=== PATIENT | female | born 1930 | race African-American/Black ===

== ENCOUNTER 2016-04-17 22:48 | Emergency (ER) | payer MEDICARE ==
[~2016-04-17] VITALS: Ht 160 cm; Wt 55.0 kg
[~2016-04-17 22:48] MED LIST: ALBU6.7H INH; DIGO0.25 PO; FENT50DI T-DERMAL; HYDR-3516 PO; LEVO50TA4 PO; METO50TA11 PO; NEUR600T PO; PRED5TAB PO
[2016-04-17 22:50] VITALS: BP 97/51; PULSE 122; RESP 18; TEMP 98.7; O2SAT 97
[2016-04-18 00:32] VITALS: BP 142/61; PULSE 98; RESP 22; O2SAT 96
[2016-04-18] MEDS ORDERED: SODIUM CHLOR 0.9% 1000 ML INJ 1,000 ML IV SCH (00:37)
[2016-04-18 00:41] VITALS: O2SAT 100
[2016-04-18] MEDS ORDERED: ONDANSETRON HCL 4 MG/2 ML VIAL IVP ONE (00:45)
[2016-04-18] MEDS ORDERED: SODIUM CHLORIDE 0.9% FLUSH 5 ML FLUSH IVF PRN (00:45)
[2016-04-18 01:13] LABS: BASOPHIL % 0.4 % (0.0-2.0); HEMO FLAGS DIFF FINAL; LYMPH % 8.1 % (9.0-44.0); LYMPHOCYTE # 0.8 TH/MM3 (1.0-4.8); MEAN CELL VOLUME 86.4 FL (80.0-100.0); MEAN CORPUSCULAR HEMOGLOBIN 29.9 PG (27.0-34.0); MEAN CORPUSCULAR HGB CONC 34.6 % (32.0-36.0); MONO % 4.4 % (0.0-8.0); NEUT % 87.1 % (16.0-70.0); PLATELET COUNT 206 TH/MM3 (150-450); RED CELL DISTRIBUTION WIDTH 14.6 % (11.6-17.2); WHITE BLOOD COUNT 9.2 TH/MM3 (4.0-11.0)
[2016-04-18 01:19] LABS: BICARBONATE 25.3 MEQ/L (21.0-32.0)
[2016-04-18 03:01] VITALS: BP 112/56; PULSE 99; RESP 16; O2SAT 96
[2016-04-18 03:58] LABS: BACTERIA, URINE RARE /hpf; BLOOD, URINE NEG (NEG); GLUCOSE,URINE NEG (NEG); HYALINE CAST, URINE 9 /lpf (RARE); KETONE, URINE 40 mg/dL (NEG); MUCUS URINE FEW /lpf (OCC); NITRITE,URINE NEG (NEG); SQUAMOUS EPITHELIAL CELL URINE 1 /hpf (0-5); TRANSITIONAL EPI CELLS, URINE <1 /hpf; URINE COLOR YELLOW (YELLW/STRAW)
[2016-04-18 04:00] LABS: COMMENT (UR) CULT NOT INDICATED; CULTURE IF INDICATED CULT NOT INDICATED
--- NOTE | 2016-04-18 04:12 | PD ---
HPI . Weakness Chief Complaint: General Weakness Time Seen by Provider: 00:29 Travel History International Travel<30 days: No Contact w/Intl Traveler<30days: No Traveled to known affect area: No History of Present Illness HPI Patient presents complaining of weakness and nausea. She states that her family checked her blood pressure at home and found her blood pressure to be low and her heart rate to be high. She was subsequently brought to us for evaluation. 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 HERNIA REP., GARCÍA FUNDOPLICATION) Appendectomy: No Body Medical Devices: HERNIA REAIR WITH MESH Cardiac Surgery: No Cholecystectomy: No Coronary Artery Bypass Graft: No Ear Surgery: No Endocrine Surgery: No Eye Surgery: Yes (REGAN EYE CATARACT EXTRACT) Genitourinary Surgery: Yes (BLADDER SUSPENSION) Gynecologic Surgery: Yes ( UNILATERAL OOPHORECTOMY) Hysterectomy: Yes (PARTIAL) Joint Replacement: Yes (TOTAL RT HIP 03/14/2011) Neurologic Surgery: No Oral Surgery: No Pacemaker: No Thoracic Surgery: No Other Surgery: Yes (RIGHT HIP REPLACEMENT) Social History Alcohol Use: No Tobacco Use: No Substance Use: No Allergies-Medications (Allergen,Severity, Reaction): Coded Allergies: Meloxicam (Verified Allergy, Severe, ORAL INFLAMMATION, 04/17/16) Morphine (Verified Allergy, Intermediate, ITCHING, 04/17/16) Percocet (Verified Allergy, Intermediate, ITCHING, 04/17/16) Reported Meds & Prescriptions Reported Meds & Active Scripts Active Reported Metoprolol Succinate ER 24 HR (Metoprolol Succinate) 50 Mg Tab 75 Mg PO BID Levothyroxine (Levothyroxine Sodium) 50 Mcg Tab 50 Mcg PO DAILY Hydrocodone-Acetaminophen 5-325 mg Tab 1 Tab PO Q4H PRN Neurontin (Gabapentin) 600 Mg Tab 600 Mg PO BID Proventil Hfa 6.7 GM Inh (Albuterol Sulfate) 90 Mcg/Act Aer 1 Puff INH Q4H PRN Fentanyl Patch 72 HR (Fentanyl) 50 Mcg/Hr Patch 50 Mcg T-DERMAL Q72H Remove old patch when new one placed. Digoxin 0.25 Mg Tab 2.5 Mg PO DAILY Review of Systems Except as stated in HPI: all other systems reviewed are Neg General / Constitutional: No: Fever, Chills Gastrointestinal: Positive: Nausea Neurologic: Positive: Weakness Physical Exam Narrative GENERAL: This is a spry appearing elderly woman. We had a little bit of difficulty getting her history. She was a little bit of a poor historian. SKIN: Warm and dry. HEAD: Atraumatic. Normocephalic. EYES: Pupils equal and round. Conjunctivae pink. ENT: No nasal bleeding or discharge. Mucous membranes pink and moist. NECK: Trachea midline. Neck supple. CARDIOVASCULAR: Regular rate and rhythm. Heart sounds are normal. RESPIRATORY: No accessory muscle use. Lungs are clear with full air movement throughout. GASTROINTESTINAL: Abdomen soft, non-tender, nondistended. MUSCULOSKELETAL: No obvious deformities. No edema. Patient is able to ambulate without difficulty. NEUROLOGICAL: Awake and alert. No obvious cranial nerve deficits. Motor grossly within normal limits. Normal speech. PSYCHIATRIC: Appropriate mood and affect; insight and judgment normal. Data Data Last Documented VS Vital Signs Date Time Temp Pulse Resp B/P Pulse Ox O2 Delivery O2 Flow Rate FiO2 04/18/16 03:01 99 16 112/56 96 04/18/16 00:41 Room Air 04/17/16 22:50 98.7 Orders Basic Metabolic Panel (Bmp) (04/18/16 00:37) Complete Blood Count With Diff (04/18/16 00:37) Urinalysis - C+S If Indicated (04/18/16 00:37) Iv Access Insert/Monitor (04/18/16 00:37) Ecg Monitoring (04/18/16 00:37) Oximetry (04/18/16 00:37) Ondansetron Inj (Zofran Inj) (04/18/16 00:45) Sodium Chlor 0.9% 1000 Ml Inj (Ns 1000 M (04/18/16 00:37) Sodium Chloride 0.9% Flush (Ns Flush) (04/18/16 00:45) Labs Laboratory Tests Test 04/18/16 04/18/16 00:47 03:25 White Blood Count 9.2 TH/MM3 Red Blood Count 3.70 MIL/MM3 Hemoglobin 11.1 GM/DL Hematocrit 32.0 % Mean Corpuscular Volume 86.4 FL Mean Corpuscular Hemoglobin 29.9 PG Mean Corpuscular Hemoglobin 34.6 % Concent Red Cell Distribution Width 14.6 % Platelet Count 206 TH/MM3 Mean Platelet Volume 10.2 FL Neutrophils (%) (Auto) 87.1 % Lymphocytes (%) (Auto) 8.1 % Monocytes (%) (Auto) 4.4 % Eosinophils (%) (Auto) 0.0 % Basophils (%) (Auto) 0.4 % Neutrophils # (Auto) 8.0 TH/MM3 Lymphocytes # (Auto) 0.8 TH/MM3 Monocytes # (Auto) 0.4 TH/MM3 Eosinophils # (Auto) 0.0 TH/MM3 Basophils # (Auto) 0.0 TH/MM3 CBC Comment DIFF FINAL Differential Comment Sodium Level 135 MEQ/L Potassium Level 4.0 MEQ/L Chloride Level 99 MEQ/L Carbon Dioxide Level 25.3 MEQ/L Anion Gap 11 MEQ/L Blood Urea Nitrogen 27 MG/DL Creatinine 1.28 MG/DL Estimat Glomerular Filtration 48 ML/MIN Rate Random Glucose 117 MG/DL Calcium Level 8.6 MG/DL Urine Color YELLOW Urine Turbidity HAZY Urine pH 5.0 Urine Specific [place] 1.014 Urine Protein TRACE mg/dL Urine Glucose (UA) NEG mg/dL Urine Ketones 40 mg/dL Urine Occult Blood NEG Urine Nitrite NEG Urine Bilirubin NEG Urine Urobilinogen LESS THAN 2.0 MG/DL Urine Leukocyte Esterase NEG Urine RBC 1 /hpf Urine WBC 3 /hpf Urine Squamous Epithelial 1 /hpf Cells Urine Transitional Epithelial <1 /hpf Cells Urine Bacteria RARE /hpf Urine Hyaline Casts 9 /lpf Urine Mucus FEW /lpf Microscopic Urinalysis Comment CULT NOT INDICATED MDM Medical Decision Making Medical Screen Exam Complete: Yes Emergency Medical Condition: Yes Differential Diagnosis Differential diagnosis of weakness includes but is not limited to infection, CVA , electrolyte disturbance, renal failure, hypoglycemia, UTI, ACS Narrative Course Patient presents for evaluation of weakness. She reportedly had tachycardia and hypotension earlier at home. She was also noted to be tachycardic and hypotensive in triage. However, those vital signs had normalized by the time she was placed into a room. CBC & BMP Diagram 04/18/16 00:47 UA is negative for infection. Vital Signs Date Time Temp Pulse Resp B/P Pulse Ox O2 Delivery O2 Flow Rate FiO2 04/18/16 03:01 99 16 112/56 96 04/18/16 00:41 100 Room Air 04/18/16 00:32 98 22 142/61 96 Room Air 04/17/16 22:50 98.7 122 18 97/51 97 Room Air She may have been dehydrated. She has received a liter of fluid. She is able to ambulate without any difficulty at this point. Diagnosis Primary Impression: Weakness Disposition: DISCHARGE HOME Condition: Stable Carey Dacosta MD Apr 18, 2016 04:12
[2016-06-20] MEDS ORDERED: LISI10TA3 PO (08:08)
[2016-06-20] MEDS ORDERED: IBUP-232 PO (12:18)
[2016-07-03] MEDS ORDERED: DOXY100C PO (10:42)
[2016-07-04] MEDS ORDERED: MEDR4PAK PO (10:50)
[2016-07-10] MEDS ORDERED: LEVA500T PO (11:33)
[2016-07-17] MEDS ORDERED: PRED10 PO (11:38)
== END 2016-04-18 05:00 | disposition home or self-care (01) ==
LOC: NEPE 22:48
DX: R53.1 Weakness (principal); I48.91 Unspecified atrial fibrillation; I10 Essential (primary) hypertension; I50.9 Heart failure, unspecified; E03.9 Hypothyroidism, unspecified
CPT/HCPCS: 80048; 81001; 85025; 96361; 96374; 99284; J2405; J7030

== ENCOUNTER → 2016-06-20 | Day surgery (SDC) | payer MEDICARE ==
[~2016-06-20] VITALS: Ht 149.9 cm; Wt 62.0 kg
[~2016-06-20] MED LIST changes: +BUPIVACAINE HCL PF 0.5% 30 ML VIAL ONE; +CEPH-460 PO; +DEXT 5%-NACL 0.45% 1000 ML INJ 1,000 ML IV SCH; +DOXY100C PO; +FAMOTIDINE 20 MG/2 ML VIAL ONE; +IBUP-232 PO; +LACTATED RINGER'S 1000 ML INJ 1,000 ML ONE; +LEVA500T PO; +LISI10TA3 PO; +MEDR4PAK PO; +METOPROLOL TARTRATE 25 MG TAB ONE; +MIDAZOLAM HCL 2 MG/2 ML VIAL ONE; +PRED10 PO; -PRED5TAB PO; +PROPOFOL 200 MG/20 ML AMP IV ONE; +SODIUM CHLORIDE 0.9% FLUSH 5 ML FLUSH IVF PRN; +SODIUM CHLORIDE 0.9% FLUSH 5 ML FLUSH IVF SCH; +SODIUM CHLORIDE 0.9% INJ 50 ML ONE; +ceFAZolin INJ 1,000 MG VIAL ONE
[2016-06-20 07:46] VITALS: BP 171/88; PULSE 95; RESP 16; TEMP 98.5; O2SAT 95
[2016-06-20 08:15] VITALS: PULSE 95
[2016-06-20 09:15] VITALS: PULSE 100
--- NOTE | 2016-06-20 12:17 | HHI.PR ---
Immediate Post Op Note Procedure Date: Jun 20, 2016 Pre Op Diagnosis: (1) Carpal tunnel syndrome (2) Synovitis of forearm Post Op Diagnosis: (1) Carpal tunnel syndrome (2) Synovitis of forearm Surgeon: Cristal Mckenzie Group Director(s): None Procedure: Open release of the right carpal tunnel. Flexor tenosynovectomy of the right carpal tunnel and forearm. Specimen(s) removed: Tenosynovium Anesthesia: Regional Block Drains: None Tourniquet time (min at mmHg) 64 minutes at 250 mm Hg Patient to: PACU Patient Condition: Good Date/Time of Procedure: SEE SURGICAL CARE RECORD Cristal Mckenzie MD Jun 20, 2016 12:16
[2016-06-20 12:45] VITALS: TEMP 97.8
[2016-06-20 13:40] VITALS: BP 142/71; PULSE 78; RESP 16; O2SAT 99
--- NOTE | 2016-06-21 13:43 | EKG ---
Date Performed: 06/20/2016 Time Performed: 08:22:20 PTAGE: 85 years EKG: Sinus rhythm with PAC(s). Short FL interval Possible lateral infarct - age undetermined Inferior and ant/septal S T-T changes suggest myocardial injury/ischemia Exstensive ST-T changes suggest ischemia Compared to p rior tracing no significant change Abnormal ECG PREVIOUS TRACING : 04/30/2015 19.25 DOCTOR: Asael Fischer Interpretating Date/Time 06/21/2016 13:38:01
--- NOTE | 2016-06-23 11:00 | MP ---
cc: MARYBEL LANGE M.D. DATE OF SURGERY: June 20, 2016 PREOPERATIVE DIAGNOSIS 1. Carpal tunnel syndrome. 2. Synovitis of right carpal tunnel. 3. Synovitis of right forearm. POSTOPERATIVE DIAGNOSIS 1. Carpal tunnel syndrome. 2. Synovitis of right carpal tunnel. 3. Synovitis of right forearm. PROCEDURE 1. Open release of the right carpal tunnel. 2. Radical synovectomy of the right carpal tunnel and forearm. ANESTHESIA Regional block. SURGEON Marybel Lange MD INDICATIONS A 85-year-old female with right carpal tunnel syndrome and pressure from the synovium as well as a synovitic mass in the distal forearm. FINDINGS At the completion of the procedure the carpal tunnel was completely released, there was evidence of compression of the tunnel and there was a significant amount of synovitis within the tunnel. There was also a synovitic mass which measured approximately 3-1/2 cm x 3 cm in greatest dimension. It was definitely invading the flexor tendons and it was removed at the completion of the procedure. Tourniquet time was 64 minutes. PROCEDURE The patient was seen preoperatively where the sites and side were identified and marked. The patient was then taken to the operating room, placed in supine position, identity was checked against the arm band and the consent form, site and side confirmed, time-out called prior to beginning the procedure. The right upper extremity was prepped with Hibiclens and draped in usual sterile fashion. The area to be incised was outlined with a marking pen as longitudinal incision in the palm just to the ulnar side of the midline, in addition a transverse incision was designed over the mass. The arm was exsanguinated and the tourniquet inflated to 250 mmHg. A #15 blade was then used to make the incision down through the skin, down to the subcutaneous tissue, down to the palmar fascia. Distally a small hole was poked in the palmar fascia and using the ulnar artery as a guide the Guyon's canal was released. The ulnar artery and nerve were retracted ulnarly. The median nerve retracted medially and using the flexor tendon to the ring finger as a guide the transverse carpal ligament was divided. The nerve was carefully from the roof of the tunnel. It was seen to be compressed but there was no significant scarring around it. After it was mobilized the flexor tendons had synovium removed under loupe magnification. The transverse incision was then made in the forearm over the mass. Decision was made to extend the incision back to the carpal tunnel in order to protect the nerve and facilitate dissection. So the incision was then made in a zigzag fashion between the carpal tunnel incision and the one on the forearm. Flaps were elevated and raised. The palmar fascia was divided along with the palmaris longus. The nerve was identified and retracted and a tenosynovectomy was performed on all of the flexor tendons within the carpal tunnel. Once this was completed the wounds were copiously irrigated with saline and closed with interrupted running 4-0 and 5-0 Nylon. The tourniquet was then released after 64 minutes of tourniquet time, pressure was applied. After several minutes there was no evidence of any oozing and a dressing was applied using povidone-iodine ointment, Adaptic, Telfa, 4x4s, hand wrap and a palmar splint. The patient was then taken from the operating room to the recovery room in satisfactory condition having tolerated the procedure well. Postoperative instructions include keeping the arm elevated, keeping it clean and dry and returning in several days for follow up. MD ONEYDA Walsh/COLE /12:21 PM /10:44 AM
== END | disposition home or self-care (01) ==
LOC: PHSDC 07:03
PROVIDERS: ATTEND Specialist
DX: G56.01 Carpal tunnel syndrome, right upper limb (principal); M65.9 Synovitis and tenosynovitis, unspecified; I10 Essential (primary) hypertension; J44.9 Chronic obstructive pulmonary disease, unspecified
CPT/HCPCS: 01810; 25115; 64415; 64721; 88305; 88312; 93005; J0690; J2250; J7120

== ENCOUNTER 2016-06-30 15:41 | Emergency (ER) | payer MEDICARE ==
[~2016-06-30] VITALS: Ht 149.9 cm; Wt 60.0 kg
[~2016-06-30 15:41] MED LIST changes: -BUPIVACAINE HCL PF 0.5% 30 ML VIAL ONE; -CEPH-460 PO; -DEXT 5%-NACL 0.45% 1000 ML INJ 1,000 ML IV SCH; -DOXY100C PO; -FAMOTIDINE 20 MG/2 ML VIAL ONE; -LACTATED RINGER'S 1000 ML INJ 1,000 ML ONE; -LEVA500T PO; -MEDR4PAK PO; -METOPROLOL TARTRATE 25 MG TAB ONE; -MIDAZOLAM HCL 2 MG/2 ML VIAL ONE; -PRED10 PO; -PROPOFOL 200 MG/20 ML AMP IV ONE; -SODIUM CHLORIDE 0.9% FLUSH 5 ML FLUSH IVF PRN; -SODIUM CHLORIDE 0.9% FLUSH 5 ML FLUSH IVF SCH; -SODIUM CHLORIDE 0.9% INJ 50 ML ONE; -ceFAZolin INJ 1,000 MG VIAL ONE
[2016-06-30 15:46] VITALS: BP 172/80; PULSE 70; RESP 20; TEMP 98.5; O2SAT 98
--- NOTE | 2016-06-30 15:52 | PD ---
Physical Exam Time Seen by Provider: 15:50 Narrative 85 y/o here for postoperative wound check. Underwent R carpal tunnel sx on june [address] Mckenzie, here today because theya re concerned about the possibility of the wound being infected. vss Seen at triage desk. Awaiting bed placement. Data Data Last Documented VS Vital Signs Date Time Temp Pulse Resp B/P Pulse Ox O2 Delivery O2 Flow Rate FiO2 06/30/16 15:46 98.5 70 20 172/80 98 Room Air [facility] Medical Record Reviewed: Yes Supervised Visit with SHAMIKA: Madan Hernandes June 30, 2016 15:52
--- NOTE | 2016-06-30 20:09 | PD ---
HPI Chief Complaint: Skin Problem Time Seen by Provider: 19:54 Travel History International Travel<30 days: No Contact w/Intl Traveler<30days: No Traveled to known affect area: No History of Present Illness HPI Patient is a 85-year-old female presenting to the chart for evaluation of right wrist swelling and pain. Patient had carpal tunnel surgery with Dr. Mckenzie on 06/20/16. This past Thursday she started having increased swelling, increased pain , and bruising per her report. Patient with pain management today and that provider told her to follow up with her hand surgeon, she called Dr. Mckenzie's office and he was unavailable and was told to come to the emergency department for evaluation. Patient denies any fevers but reports chills. She reports her pain is 8 out of 10 and describes it as sore. Patient had taken anything for her pain today. 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 HERNIA REP., GARCÍA FUNDOPLICATION) Appendectomy: No Body Medical Devices: HERNIA REAIR WITH MESH Cardiac Surgery: No Cholecystectomy: No Coronary Artery Bypass Graft: No Ear Surgery: No Endocrine Surgery: No Eye Surgery: Yes (REGAN EYE CATARACT EXTRACT) Genitourinary Surgery: Yes (BLADDER SUSPENSION) Gynecologic Surgery: Yes ( UNILATERAL OOPHORECTOMY) Hysterectomy: Yes (PARTIAL) Joint Replacement: Yes (TOTAL RT HIP 03/14/2011) Neurologic Surgery: No Oral Surgery: No Pacemaker: No Thoracic Surgery: No Other Surgery: Yes (RIGHT HIP REPLACEMENT, right carpal tunnel) Social History Alcohol Use: No Tobacco Use: No Substance Use: No Allergies-Medications (Allergen,Severity, Reaction): Coded Allergies: Meloxicam (Verified Allergy, Severe, ORAL INFLAMMATION, 06/30/16) Morphine (Verified Allergy, Intermediate, ITCHING, 06/30/16) Percocet (Verified Allergy, Intermediate, ITCHING, 06/30/16) Reported Meds & Prescriptions Reported Meds & Active Scripts Active Keflex (Cephalexin) 500 Mg Cap 500 Mg PO Q12H 10 Days Ibuprofen 600 Mg Tab 600 Mg PO Q8HR PRN Reported Lisinopril 10 Mg Tab 10 Mg PO DAILY Metoprolol Succinate ER 24 HR (Metoprolol Succinate) 50 Mg Tab 75 Mg PO BID Levothyroxine (Levothyroxine Sodium) 50 Mcg Tab 50 Mcg PO DAILY Hydrocodone-Acetaminophen 5-325 mg Tab 1 Tab PO Q4H PRN Neurontin (Gabapentin) 600 Mg Tab 600 Mg PO BID Proventil Hfa 6.7 GM Inh (Albuterol Sulfate) 90 Mcg/Act Aer 1 Puff INH Q4H PRN Fentanyl Patch 72 HR (Fentanyl) 50 Mcg/Hr Patch 50 Mcg T-DERMAL Q72H Remove old patch when new one placed. Digoxin 0.25 Mg Tab 2.5 Mg PO DAILY Review of Systems Except as stated in HPI: all other systems reviewed are Neg General / Constitutional: No: Fever, Chills Cardiovascular: No: Chest Pain or Discomfort Respiratory: No: Shortness of Breath Gastrointestinal: No: Nausea, Abdominal Pain Musculoskeletal: Positive: Myalgias, Edema, Pain Skin: Positive Change in Pigmentation Physical Exam Narrative GENERAL: Well-developed, well-nourished, alert elderly female. Resting comfortably in no acute distress. SKIN: Warm and dry. Right wrist is edematous, tender to palpation. Intact sutures noted to the palmar aspect of the right wrist, no drainage noted. HEAD: Normocephalic. EYES: No scleral icterus. No injection or drainage. NECK: Supple, trachea midline. No JVD or lymphadenopathy. CARDIOVASCULAR: Regular rate and rhythm without murmurs, gallops, or rubs. RESPIRATORY: Breath sounds equal bilaterally. No accessory muscle use. GASTROINTESTINAL: Abdomen soft, non-tender, nondistended. MUSCULOSKELETAL: No cyanosis. No pain with passive extension of right fingers. Brisk capillary refill noted. BACK: Nontender without obvious deformity. No CVA tenderness. Data Data Last Documented VS Vital Signs Date Time Temp Pulse Resp B/P Pulse Ox O2 Delivery O2 Flow Rate FiO2 06/30/16 22:34 73 18 154/72 100 Room Air 06/30/16 20:57 98.1 Orders Complete Blood Count With Diff (06/30/16 19:53) Basic Metabolic Panel (Bmp) (06/30/16 19:53) C-Reactive Protein (Crp) (06/30/16 19:53) Westergren Sedimentation Rate (06/30/16 19:53) Wrist, Complete (Ciu0fhy) (06/30/16 ) Iv Access Insert/Monitor (06/30/16 19:53) Cephalexin (Keflex) (06/30/16 20:45) Labs Laboratory Tests Test 06/30/16 19:57 White Blood Count 5.5 TH/MM3 Red Blood Count 3.95 MIL/MM3 Hemoglobin 11.3 GM/DL Hematocrit 33.6 % Mean Corpuscular Volume 85.1 FL Mean Corpuscular Hemoglobin 28.6 PG Mean Corpuscular Hemoglobin 33.6 % Concent Red Cell Distribution Width 15.7 % Platelet Count 303 TH/MM3 Mean Platelet Volume 9.6 FL Neutrophils (%) (Auto) 45.1 % Lymphocytes (%) (Auto) 40.6 % Monocytes (%) (Auto) 8.0 % Eosinophils (%) (Auto) 4.6 % Basophils (%) (Auto) 1.7 % Neutrophils # (Auto) 2.5 TH/MM3 Lymphocytes # (Auto) 2.2 TH/MM3 Monocytes # (Auto) 0.4 TH/MM3 Eosinophils # (Auto) 0.3 TH/MM3 Basophils # (Auto) 0.1 TH/MM3 CBC Comment DIFF FINAL Differential Comment Erythrocyte Sedimentation Rate 41 mm/hr Sodium Level 139 MEQ/L Potassium Level 3.3 MEQ/L Chloride Level 104 MEQ/L Carbon Dioxide Level 28.3 MEQ/L Anion Gap 7 MEQ/L Blood Urea Nitrogen 16 MG/DL Creatinine 0.76 MG/DL Estimat Glomerular Filtration 88 ML/MIN Rate Random Glucose 78 MG/DL Calcium Level 8.9 MG/DL C-Reactive Protein 0.94 MG/DL MDM Medical Decision Making Medical Screen Exam Complete: Yes Emergency Medical Condition: Yes Interpretation(s) Laboratory Tests Test 06/30/16 19:57 White Blood Count 5.5 TH/MM3 Red Blood Count 3.95 MIL/MM3 Hemoglobin 11.3 GM/DL Hematocrit 33.6 % Mean Corpuscular Volume 85.1 FL Mean Corpuscular Hemoglobin 28.6 PG Mean Corpuscular Hemoglobin 33.6 % Concent Red Cell Distribution Width 15.7 % Platelet Count 303 TH/MM3 Mean Platelet Volume 9.6 FL Neutrophils (%) (Auto) 45.1 % Lymphocytes (%) (Auto) 40.6 % Monocytes (%) (Auto) 8.0 % Eosinophils (%) (Auto) 4.6 % Basophils (%) (Auto) 1.7 % Neutrophils # (Auto) 2.5 TH/MM3 Lymphocytes # (Auto) 2.2 TH/MM3 Monocytes # (Auto) 0.4 TH/MM3 Eosinophils # (Auto) 0.3 TH/MM3 Basophils # (Auto) 0.1 TH/MM3 CBC Comment DIFF FINAL Differential Comment Erythrocyte Sedimentation Rate 41 mm/hr Sodium Level 139 MEQ/L Potassium Level 3.3 MEQ/L Chloride Level 104 MEQ/L Carbon Dioxide Level 28.3 MEQ/L Anion Gap 7 MEQ/L Blood Urea Nitrogen 16 MG/DL Creatinine 0.76 MG/DL Estimat Glomerular Filtration 88 ML/MIN Rate Random Glucose 78 MG/DL Calcium Level 8.9 MG/DL C-Reactive Protein 0.94 MG/DL Last Impressions Wrist X-Ray 06/30/16 0000 Signed Impressions: Service Date/Time: Thursday, June 30, 2016 19:55 - CONCLUSION: Volar soft tissue swelling without any acute bony abnormality or perceptible foreign body. Steven Maza MD Vital Signs Date Time Temp Pulse Resp B/P Pulse Ox O2 Delivery O2 Flow Rate FiO2 06/30/16 19:43 18 06/30/16 15:46 98.5 70 20 172/80 98 Room Air Differential Diagnosis Cellulitis versus overuse versus hematoma versus other Narrative Course Patient is a 85-year-old female presenting to emergency from for evaluation of right wrist pain and swelling. She had carpal tunnel repair on June 20. Patient is neurovascularly intact She reports increased pain and swelling since yesterday. Patient did take off the brace after seeing Dr. Mckenzie on Thursday, the swelling started Thursday. The swelling could be secondary to overuse however labs and imaging ordered and pending. Patient's vital signs are stable , she is afebrile, stitches are well approximated with no obvious drainage noted. X-ray of the right wrist show soft tissue swelling, no other abnormality noted. CBC is unremarkable Chemistry, potassium 3.3, CRP 0.94. Sedimentation rate 41 Patient be given Keflex in the emergency department, she will be provided with a prescription for completion of course of antibiotics at home. She is encouraged follow-up with Dr. Mckenzie in 24-48 hours, daughter states she has an appointment on . She is advised to return to emergency department immediately for any new or worsening symptoms. Patient verbalized understanding of instructions. Patient is stable for discharge. Diagnosis Primary Impression: Postoperative edema Referrals: Cristal Mckenzie MD 1 day CALL FOR APPT Patient Instructions: General Instructions Additional Instructions: Follow-up with Dr. Mckenzie Complete full course of antibiotics as prescribed Return to emergency department immediately for any new or worsening symptoms Med/Other Pt SpecificInfo: Prescription(s) given Scripts Cephalexin (Keflex)500 Mg [id number] Mg PO Q12H 10 Days Ref 0 Prov:Isabel Jones 06/30/16 Disposition: 01 DISCHARGE HOME Condition: Stable Isabel Jones June 30, 2016 20:09
[2016-06-30 20:11] LABS: AUTOMATED NEUTROPHIL # 2.5 TH/MM3 (1.8-7.7); BASOPHIL # 0.1 TH/MM3 (0-0.2); BASOPHIL % 1.7 % (0.0-2.0); EOSINOPHIL # 0.3 TH/MM3 (0-0.4); EOSINOPHIL % 4.6 % (0.0-4.0); HEMATOCRIT 33.6 % (35.0-46.0); HEMO FLAGS DIFF FINAL; LYMPH % 40.6 % (9.0-44.0); LYMPHOCYTE # 2.2 TH/MM3 (1.0-4.8); MEAN CELL VOLUME 85.1 FL (80.0-100.0); MEAN CORPUSCULAR HEMOGLOBIN 28.6 PG (27.0-34.0); MEAN CORPUSCULAR HGB CONC 33.6 % (32.0-36.0); NEUT % 45.1 % (16.0-70.0); PLATELET COUNT 303 TH/MM3 (150-450); RED BLOOD COUNT 3.95 MIL/MM3 (4.00-5.30); RED CELL DISTRIBUTION WIDTH 15.7 % (11.6-17.2); WHITE BLOOD COUNT 5.5 TH/MM3 (4.0-11.0)
--- NOTE | 2016-06-30 20:12 | RADRPT ---
EXAM DATE/TIME: 06/30/2016 19:55 [facility] COMPARISON: No previous studies available for comparison. INDICATIONS : Pain, redness and swelling anterior right wrist around sutures, post carpel tunnel surgery 06/20 MEDICAL HISTORY : Carpel tunnel syndrome SURGICAL HISTORY : carpel tunnel surgery ENCOUNTER: Initial ACUITY: 3 days PAIN SCORE: 8/10 LOCATION: Right anterior wrist FINDINGS: Bones of the right wrist are intact and normally aligned. Mild osteoarthritis in a the triscaphe and first carpometacarpal joints. There is prominent volar soft tissue swelling. No radiopaque foreign body demonstrated. CONCLUSION: Volar soft tissue swelling without any acute bony abnormality or perceptible foreign body. Steven Maza MD on June 30, 2016 at 20:09 Board Certified Radiologist. This report was verified electronically.
[2016-06-30 20:37] LABS: BICARBONATE 28.3 MEQ/L (21.0-32.0); POTASSIUM 3.3 MEQ/L (3.5-5.1)
[2016-06-30] MEDS ORDERED: CEPHALEXIN MONOHYDRATE 500 MG CAP PO ONE (20:45)
[2016-06-30] MEDS ORDERED: CEPH-460 PO (20:47)
[2016-06-30 20:57] VITALS: BP 163/72; PULSE 18; PULSE 71; RESP 18; TEMP 98.1; O2SAT 95
[2016-06-30 22:34] VITALS: BP 154/72; PULSE 18; PULSE 73; RESP 18; O2SAT 100
[2016-07-03] MEDS ORDERED: DOXY100C PO (10:42)
[2016-07-04] MEDS ORDERED: MEDR4PAK PO (10:50)
[2016-07-10] MEDS ORDERED: LEVA500T PO (11:33)
[2016-07-17] MEDS ORDERED: PRED10 PO (11:38)
== END 2016-06-30 23:02 | disposition home or self-care (01) ==
LOC: NEPD 15:41
DX: R60.9 Edema, unspecified (principal); I48.91 Unspecified atrial fibrillation; I10 Essential (primary) hypertension; E03.9 Hypothyroidism, unspecified
CPT/HCPCS: 73110; 80048; 85025; 85652; 86140; 99283

== ENCOUNTER 2016-07-30 12:32 | Day surgery (SDC) | payer MEDICARE ==
[~2016-07-30 12:32] MED LIST changes: +CEPH-460 PO; +DOXY100C PO; +LEVA500T PO; +MEDR4PAK PO; +PRED10 PO
[2016-07-30 13:00] VITALS: BP 152/71; PULSE 73; RESP 18; TEMP 97.9; O2SAT 98
[2016-07-30] MEDS ORDERED: cefTRIAXone 1,000 MG/NS 100 ML IV ONE ×2 (14:00)
--- NOTE | 2016-07-30 17:59 | PD.RAD ---
Radiology Post PICC Prog Note Pre Procedure Diagnosis: (1) Infection of right hand Post Procedure Diagnosis: (1) Infection of right hand Procedure: Left PICC line placement Procedure Date: July 30, 2016 Supervising Radiologist Edward Castillo Proceduralist/Assist: Dayan Baker, RT(R)(), Roc Michael, RT(R) Device Side: Left Surinamese: 4 single lumen cm: 45 Catheter: Power PICC Plan of Activity Patient to Unit: ROPU Patient Condition: Good PICC line can be used immediately Edward Castillo MD July 30, 2016 17:59
[2016-07-30] MEDS ORDERED: SODIUM CHLORIDE 0.9% FLUSH 10 ML FLUSH IVF PRN ×2 (18:00)
[2016-07-31] MEDS ORDERED: SODIUM CHLORIDE 0.9% FLUSH 10 ML FLUSH IVF SCH (09:00)
--- NOTE | 2016-07-31 11:09 | RADRPT ---
EXAM DATE/TIME: 07/30/2016 15:05 [place] COMPARISON: No previous studies available for comparison. INDICATIONS : Patient presents with right hand infection in need of intravenous line placement for medication admin istration. MEDICAL HISTORY : CHF HTN PAD COPD Heart failure Zee GERD CHF SURGICAL HISTORY : Bilat cataract surgery Hiatal hernia repair Hysterectomy Bladder sx R rotator cuff repair Right hip replacement Right carpal tunnel sx ENCOUNTER: Initial ACUITY: 1 month PAIN SCORE: 0/10 LOCATION: N/A FLUORO TIME: 0.5 minutes IMAGE SERIES: 0 ACCESS: Left basilic vein DEVICE(S): 1.) 4 [place] single lumen 45 cm Xcela Power PICC PROCEDURE : 1. Ultrasound guidance for venous catheterization. 2. Fluoroscopic guidance. 3. Ultrasound & fluoroscopic guided central venous Power PICC line placement. The risks, benefits and alternatives to the procedure were explained and verbal and written consent w as obtained. The site was prepped in sterile fashion. Full sterile technique was used, including ca p, mask, sterile gloves and gown and a large sterile sheet. Hand hygiene and 2% chlorhexidine prep w as utilized per protocol for cutaneous antisepsis with appropriate dry time for site. The skin and s ubcutaneous tissues were infiltrated with local anesthetic solution. Under direct ultrasound guidance, a suitable vein was accessed and a measuring guidewire was introduc ed and positioned in the central venous system. The ultrasound images depicting access guidance were saved and stored to PACS for permanent record. A Power Injectable PICC line was cut to prescribed length and introduced, positioned with tip at the cavoatrial junction level. The line was flushed and secured per protocol. CONCLUSION: 1. Uncomplicated central venous Power PICC line placement. 2. The PICC line can be used immediately. Edward Castillo MD on July 31, 2016 at 11:07 Board Certified Radiologist. This report was verified electronically.
== END 2016-07-30 15:35 | disposition home or self-care (01) ==
LOC: HROP 12:32 → HRIP 12:37 → HROP 15:35
PROVIDERS: ATTEND Specialist
DX: L08.9 Local infection of the skin and subcutaneous tissue, unspecified (principal); I11.0 Hypertensive heart disease with heart failure; I50.9 Heart failure, unspecified; J44.9 Chronic obstructive pulmonary disease, unspecified; I48.91 Unspecified atrial fibrillation; K21.9 Gastro-esophageal reflux disease without esophagitis; I73.9 Peripheral vascular disease, unspecified; F41.9 Anxiety disorder, unspecified; E03.9 Hypothyroidism, unspecified; Z96.641 Presence of right artificial hip joint; Z88.5 Allergy status to narcotic agent
CPT/HCPCS: 36569; 76937; 77001; 96365; C1751; J0696; J1642

== ENCOUNTER 2018-02-01 02:55 | Inpatient (IN) ==
[2018-02-01 04:08] LABS: Baso % (Auto) 0.5 % (0.0-2.0); Eos # (Auto) 0.3 th/mm3 (0.0-0.4); Eos % (Auto) 5.9 % (0.0-4.0); Hematocrit 31.1 % (35.0-46.0); Hemoglobin 10.7 gm/dL (11.6-15.3); Lymph # (Auto) 1.4 th/mm3 (1.0-4.8); Lymph % (Auto) 26.5 % (9.0-44.0); Mean Corpuscular HGB Conc 34.5 % (32.0-36.0); Mean Corpuscular Hemoglobin 30.8 pg (27.0-34.0); Mean Corpuscular Volume 89.3 fL (80.0-100.0); Mean Platelet Volume 9.1 fL (7.0-11.0); Mono # (Auto) 0.3 th/mm3 (0.0-0.9); Mono % (Auto) 6.3 % (0.0-8.0); Neut # (Auto) 3.2 th/mm3 (1.8-7.7); Neut % (Auto) 60.8 % (16.0-70.0); Platelet Count 181 th/mm3 (150-450); Red Blood Count 3.48 mil/mm3 (4.00-5.30); Red Cell Distribution Width 14.7 % (11.6-17.2); White Blood Count 5.3 th/mm3 (4.0-11.0)
[2018-02-01 04:25] LABS: Activated Partial Thrombo Time 23.9 sec (23.4-31.7); INR 1.1 Ratio; Prothrombin Time 10.8 sec (9.8-11.6)
[2018-02-01 04:26] LABS: Albumin 3.4 g/dL (3.4-5.0); Anion Gap 5 meq/L (5-15); Aspartate Aminotransferase 15 U/L (15-37); Blood Urea Nitrogen 33 mg/dL (7-18); Calcium 8.6 mg/dL (8.5-10.1); Carbon Dioxide 28.7 meq/L (21.0-32.0); Chloride 105 meq/L (98-107); Glomerular Filtration Rate 45 mL/min (>89); Glucose,Random 94 mg/dL (74-106); Lipase 54 U/L (73-393); Magnesium 2.4 mg/dL (1.5-2.5); Potassium 3.9 meq/L (3.5-5.1); Sodium 139 meq/L (136-145)
[2018-02-01 04:27] LABS: Alanine Aminotransferase 15 U/L (10-53); D-Dimer 3.7 mg/L FEU (0.00-0.50)
[2018-02-01 04:28] LABS: Creatine Kinase 109 U/L (26-192)
[2018-02-01 04:31] LABS: Alkaline Phosphatase 71 U/L (45-117); Total Protein 6.7 g/dL (6.4-8.2)
--- NOTE | 2018-02-01 04:37 | XR ---
EXAM DATE: 02/01/2018 4:17 AM EST AGE/SEX: 87 years / Female INDICATIONS: Chest pain today. CLINICAL DATA: This is the patient's initial encounter. Patient reports that signs and symptoms have been present for 1 day and indicates a pain score of 2/10. MEDICAL/SURGICAL HISTORY: Congestive heart failure. Hypertension. PAD COPD Heart failure Afib GERD CHF . Bilat cataract surgery. Hiatal hernia repair. Hysterectomy Bladder sx R rotator cuff repa ir Right hip replacement Right carpal tunnel sx COMPARISON: No prior exams available for comparison. FINDINGS: A single AP view of the chest demonstrates the lungs to be symmetrically aerated without evidence of mass, infiltrate or effusion. There is significant elevation of left hemidiaphragm The cardiomediasti nal contours are unremarkable. Advanced degenerative changes of the shoulders bilaterally as well as the thoracic spine. CONCLUSION: No acute cardiopulmonary disease. Electronically signed by: Murali Oneal MD 02/01/2018 4:36 AM EST
--- NOTE | 2018-02-01 04:47 | CT ---
EXAM DATE: 02/01/2018 4:34 AM EST AGE/SEX: 87 years / Female INDICATIONS: Altered mental status. CLINICAL DATA: This is the patient's initial encounter. Patient reports that signs and symptoms have been present for 1 day and indicates a pain score of 0/10. MEDICAL/SURGICAL HISTORY: Cardiovascular disease. Hypertension. Gastroesophageal reflux disease. Appendectomy. Colon resection. RADIATION DOSE: 33.76 CTDI (mGy) [place] [facility] [place]. . TECHNIQUE: CT of the head without contrast. Using automated exposure control and adjustment of the mA and/or kV according to patient size, radiation dose was kept as low as reasonably achievable to ob tain optimal diagnostic quality images. DICOM format image data is available electronically for revi ew and comparison. FINDINGS: Cerebrum: The ventricles are normal for age. No evidence of midline shift, mass lesion, hemorrhage or acute infarction. No extraaxial fluid collections are seen. Posterior Fossa: The cerebellum and brainstem are intact. The 4th ventricle is midline. The cerebe llopontine angle is unremarkable. Extracranial: The visualized portion of the orbits is intact. Skull: The calvaria is intact. No evidence of skull fracture. CONCLUSION: 1. No acute intracranial abnormality. . Electronically signed by: Muarli Oneal MD 02/01/2018 4:46 AM EST
[2018-02-01 05:01] LABS: Creatine Kinase MB 1.6 ng/mL (0.5-3.6)
--- NOTE | 2018-02-01 05:33 | ED ---
HPI General Chief complaint: Medical Clearance Stated complaint: Medical Time Seen by Provider: 02/01/18 03:37 Source: patient and family Mode of arrival: ambulatory Limitations: no limitations History of Present Illness HPI narrative: The patient is an 87 year old female who presents to the [facility] emergency department with a history of chest pain that occurred prior to arrival. The patient has difficulty describing the character of the pain or how long it lasts, however she reports that the pain is not currently present. She does have a prior history of atrial fibrillation, angina, and congestive heart failure according to her family member. The patient's family member reports that they found her asleep in her recliner. They attempted to awaken her to assist her to bed when she seemed to be confused and was mumbling and complained of chest pain. The patient then became diaphoretic. She denies having any shortness of breath. The patient's family member took her blood pressure and she reports that it was 80/53 at that time. As the patient became more awake and alert her blood pressure improved. The patient does have lower extremity edema currently, however she reports that this is better than usual. She reports that she has been taking her medication as prescribed. She cannot recall when she last had a stress test. 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 On review of systems otherwise, the patient denies having any no recent fevers, cough, congestion, neck pain, abdominal pain, vomiting, diarrhea , urinary symptoms, or other neurologic symptoms. Related Data Home Medications Medication Instructions Recorded Confirmed amlodipine 5 mg PO DAILY 08/31/17 02/01/18 diclofenac sodium 75 mg PO BID 08/31/17 02/01/18 gabapentin 600 mg PO TID 08/31/17 02/01/18 hydrocodone-acetaminophen 1 tab PO TID PRN 08/31/17 02/01/18 lisinopril 10 mg PO DAILY 08/31/17 02/01/18 metoprolol tartrate 75 mg PO BID 08/31/17 02/01/18 zolpidem 1 tab PO HS 08/31/17 02/01/18 digoxin [Lanoxin] 0.125 mg PO DAILY 02/01/18 02/01/18 fentanyl 1 patch TRANSDERMAL Q72H 02/01/18 02/01/18 Allergies Allergy/AdvReac Type Severity Reaction Status Date / Time meloxicam Allergy Severe Anaphylaxis Verified 02/01/18 03:01 morphine Allergy Severe Anaphylaxis Verified 02/01/18 03:01 Review of Systems ROS: all other systems reviewed are negative [facility] Medical History Medical History Cardiac arrest (Acute) History of esophageal stricture (Acute) Back pain (Acute) Arthritis (Acute) GERD (gastroesophageal reflux disease) (Acute) Hyperthyroidism (Acute) Hypertension (Acute) Atrial fibrillation (Acute) Surgical History Surgical History History of repair of left rotator cuff (Acute) History of partial colectomy (Acute) History of appendectomy (Acute) History of total right hip replacement (Acute) History of right knee surgery (Acute) History of phacoemulsification of cataract of both eyes with intraocular lens implantation (Acute) Social History Social History Substance History: No History of Abuse Second Hand Smoke Exposure: Yes Smoking Status: Former smoker Tobacco Type: Cigarettes How Often Do You Have a Drink Containing Alcohol: Never Recent Travel in [facility] within the Last 8 Weeks: No Recent Out of Country Travel within the Last 8 Weeks: No Immunization History Tetanus Immunization: Unsure Exam Const General: cooperative, no acute distress and well developed Nutritional Appearance: well nourished Orientation: alert, awake and oriented x3 HENMT Head: normocephalic and atraumatic Nose: no nasal discharge and no epistaxis Mouth: moist mucous membranes Throat: posterior oropharynx normal and uvula midline Eyes Sclera: normal sclerae Pupils: PERRL Neck Neck: no meningeal signs, trachea midline and no JVD Resp Effort & Inspection: no use of accessory muscles Auscultation: clear to auscultation bilaterally Cardio Rate: regular rate Rhythm: regular rhythm Heart Sounds: no gallops, no murmurs and no rubs GI Inspection: non-distended Palpation: soft, no hepatosplenomegaly, no guarding, not rigid and nontender Auscultation: normal bowel sounds Back/Spine/Pelvis Back: no CVA tenderness Skin General: dry skin (warm) Neuro General: alert, awake and oriented x3 Cranial Nerves: CN's II-XI intact bilaterally Speech: speech normal Motor: strength 5/5 throughout and no movement abnormalities noted Sensory Exam: no sensory deficits noted Extrem General: normal to inspection, no calf tenderness, no clubbing, no cyanosis and edema (Trace pedal edema bilaterally.) Laterality: bilaterally Psych Mood: congruent mood Affect: normal affect Judgment: judgment good Course Initial Documented Vital Signs Temperature 97.4 F L 02/01/18 03:03 Pulse Rate 68 02/01/18 03:03 Respiratory Rate 18 02/01/18 03:03 Blood Pressure 138/64 02/01/18 03:03 Last Documented Vital Signs Temperature 98.9 F 02/01/18 16:00 Pulse Rate 63 02/01/18 16:00 Respiratory Rate 16 02/01/18 16:00 Blood Pressure 126/59 L 02/01/18 16:00 Pulse Oximetry 97 02/01/18 16:00 Medical Decision Making MDM Narrative Medical decision making narrative: During the course of the patient's emergency department visit, the patient's history, examination, and differential diagnosis were reviewed with the patient. The patient was placed on a monitor worker with oximetry and frequent blood pressure monitoring. The patient had IV access obtained and blood work sent for analysis. Diagnostic evaluation was started regarding the patient's chest pain. The patient was initially provided aspirin 324 mg p.o. x1. The patient's diagnostic evaluation is remarkable for a normal white blood cell count 5.3, hemoglobin 10.7, platelets 181 with 5.9 eosinophils, PT PTT within normal limits, d-dimer is elevated at 3.7, CTA to rule out PE was ordered. Chemistry reveals a BUN of 33, creatinine 1.34, cardiac enzymes within normal limits, BNP is 314, lipase within normal limits. CHEST X-RAY: Shows no acute cardiopulmonary disease, CT scan of the brain shows no acute intracranial abnormality. The CTA to rule out PE shows no evidence of pulmonary embolism, cardiomegaly noted, left basilar atelectasis noted. The patient's results were discussed with the patient, including the plan of care. I explained that further testing and/ or monitoring is indicated based on the patient's history, examination, and/ or laboratory findings. Therefore, I recommended admission for additional evaluation. The patient expressed understanding and was agreeable with this plan. The patient was admitted to the hospital in stable condition and sent to a bed under the care of the [facility]. Medical Screen Exam Complete: Yes Emergency Medical Condition: Yes Differential Diagnosis Differential Diagnosis: Acute coronary syndrome, versus pulmonary embolism, versus pneumonia, versus congestive heart failure exacerbation Medical Records Medical records reviewed: Yes I reviewed the patient's medical records. Lab Data Lab results reviewed: Yes I reviewed the patient's lab results. Result diagrams: 02/01/18 12:18 02/01/18 04:00 Lab Results 02/01/18 02/01/18 02/01/18 Range/Units 03:36 04:00 04:00 WBC 5.3 (4.0-11.0) th/mm3 RBC 3.48 L (4.00-5.30) mil/mm3 Hgb 10.7 L (11.6-15.3) gm/dL POC Hgb (Calc) (11.6-15.3) g/dL Hct 31.1 L (35.0-46.0) % POC Hct (35-46.0) % MCV 89.3 (80.0-100.0) fL MCH 30.8 (27.0-34.0) pg MCHC 34.5 (32.0-36.0) % RDW 14.7 (11.6-17.2) % Plt Count 181 (150-450) th/mm3 MPV 9.1 (7.0-11.0) fL Neut % (Auto) 60.8 (16.0-70.0) % Lymph % (Auto) 26.5 (9.0-44.0) % Gates % (Auto) 6.3 (0.0-8.0) % Eos % (Auto) 5.9 H (0.0-4.0) % Baso % (Auto) 0.5 (0.0-2.0) % Neut # (Auto) 3.2 (1.8-7.7) th/mm3 Lymph # (Auto) 1.4 (1.0-4.8) th/mm3 Gates # (Auto) 0.3 (0.0-0.9) th/mm3 Eos # (Auto) 0.3 (0.0-0.4) th/mm3 Baso # (Auto) 0.0 (0.0-0.2) th/mm3 WBC Differential . Differential Comment Auto diff final PT (9.8-11.6) sec INR Ratio APTT (23.4-31.7) sec Fibrinogen (227-377) mg/dL D-Dimer Quant (PE/DVT) (0.00-0.50) mg/L FEU Puncture Site Patient Temperature O2 Saturation (90-100) % ABG pH (7.380-7.420) ABG pCO2 (38-42) mmHg ABG pO2 (61-120) mmHg ABG HCO3 (22-26) mmol/L ABG O2 Content (12.0-20.0) Vol % ABG Base Excess (-2-2) mmol/L ABG Methemoglobin (0-2) % Arnoldo Test Hemoglobin (12.0-16.0) G/DL Carboxyhemoglobin (0-4) % Inspired O2 % Critical Value POC Sodium (137-144) mmol/L Sodium 139 (136-145) meq/L POC Potassium (3.6-5.0) mmol/L Potassium 3.9 (3.5-5.1) meq/L POC Chloride (102-111) mmol/L Chloride 105 (98-107) meq/L Carbon Dioxide 28.7 (21.0-32.0) meq/L Anion Gap 5 (5-15) meq/L POC BUN (5-21) mg/dL BUN 33 H (7-18) mg/dL Creatinine 1.34 H (0.50-1.00) mg/dL POC Creatinine (0.6-1.3) mg/dL Estimated GFR 45 L (>89) mL/min POC Glucose 90 (68-110) mg/dl Random Glucose 94 (74-106) mg/dL Calcium 8.6 (8.5-10.1) mg/dL Magnesium (1.5-2.5) mg/dL Total Bilirubin 1.0 (0.2-1.0) mg/dL AST 15 (15-37) U/L ALT 15 (10-53) U/L Alkaline Phosphatase 71 (45-117) U/L Total Creatine Kinase (26-192) U/L CK-MB (CK-2) (0.5-3.6) ng/mL Troponin I Less than 0.02 L (0.02-0.05) ng/mL B-Natriuretic Peptide (0-100) pg/mL Total Protein 6.7 (6.4-8.2) g/dL Albumin 3.4 (3.4-5.0) g/dL Triglycerides (42-150) mg/dL Cholesterol (120-200) mg/dL LDL Cholesterol, Calc (0-99) mg/dL HDL Cholesterol (40.0-60.0) mg/dL Cholesterol/HDL Ratio Ratio Lipase 54 L (73-393) U/L Beta HCG, Quant (0-5) mIU/mL Urine Color (Yellw/Straw) Urine Clarity (Clear) Urine pH (5.0-8.5) Ur Specific Mammoth (1.002-1.035) Urine Protein (Neg-Trace) mg/dL Urine Glucose (UA) (Negative) mg/dL Urine Ketones (Negative) mg/dL Urine Occult Blood (Negative) Urine Nitrate (Negative) Urine Bilirubin (Negative) Urine Urobilinogen (Less than 2) mg/dL Ur Leukocyte Esterase (Negative) Urine RBC (0-3) /hpf Urine WBC (0-5) /hpf Ur Squamous Epith Cells (0-5) /hpf Urine Mucus (Occasional) /lpf Micro UA Comment Ur Microscopic Review Urine Culture Comments Urine Opiates Screen (Neg) Ur Barbiturates Screen (Neg) Ur Amphetamines Screen (Neg) U Benzodiazepines Scrn (Neg) Urine Cocaine Screen (Neg) U Cannabinoids Screen (Neg) Blood Type Antibody Screen 02/01/18 02/01/18 02/01/18 Range/Units 04:00 04:00 04:00 WBC (4.0-11.0) th/mm3 RBC (4.00-5.30) mil/mm3 Hgb (11.6-15.3) gm/dL POC Hgb (Calc) (11.6-15.3) g/dL Hct (35.0-46.0) % POC Hct (35-46.0) % MCV (80.0-100.0) fL MCH (27.0-34.0) pg MCHC (32.0-36.0) % RDW (11.6-17.2) % Plt Count (150-450) th/mm3 MPV (7.0-11.0) fL Neut % (Auto) (16.0-70.0) % Lymph % (Auto) (9.0-44.0) % Gates % (Auto) (0.0-8.0) % Eos % (Auto) (0.0-4.0) % Baso % (Auto) (0.0-2.0) % Neut # (Auto) (1.8-7.7) th/mm3 Lymph # (Auto) (1.0-4.8) th/mm3 Gates # (Auto) (0.0-0.9) th/mm3 Eos # (Auto) (0.0-0.4) th/mm3 Baso # (Auto) (0.0-0.2) th/mm3 WBC Differential Differential Comment PT 10.8 (9.8-11.6) sec INR 1.1 Ratio APTT 23.9 (23.4-31.7) sec Fibrinogen (227-377) mg/dL D-Dimer Quant (PE/DVT) 3.70 H (0.00-0.50) mg/L FEU Puncture Site Patient Temperature O2 Saturation (90-100) % ABG pH (7.380-7.420) ABG pCO2 (38-42) mmHg ABG pO2 (61-120) mmHg ABG HCO3 (22-26) mmol/L ABG O2 Content (12.0-20.0) Vol % ABG Base Excess (-2-2) mmol/L ABG Methemoglobin (0-2) % Arnoldo Test Hemoglobin (12.0-16.0) G/DL Carboxyhemoglobin (0-4) % Inspired O2 % Critical Value POC Sodium (137-144) mmol/L Sodium (136-145) meq/L POC Potassium (3.6-5.0) mmol/L Potassium (3.5-5.1) meq/L POC Chloride (102-111) mmol/L Chloride (98-107) meq/L Carbon Dioxide (21.0-32.0) meq/L Anion Gap (5-15) meq/L POC BUN (5-21) mg/dL BUN (7-18) mg/dL Creatinine (0.50-1.00) mg/dL POC Creatinine (0.6-1.3) mg/dL Estimated GFR (>89) mL/min POC Glucose (68-110) mg/dl Random Glucose (74-106) mg/dL Calcium (8.5-10.1) mg/dL Magnesium 2.4 (1.5-2.5) mg/dL Total Bilirubin (0.2-1.0) mg/dL AST (15-37) U/L ALT (10-53) U/L Alkaline Phosphatase (45-117) U/L Total Creatine Kinase 109 (26-192) U/L CK-MB (CK-2) 1.6 (0.5-3.6) ng/mL Troponin I (0.02-0.05) ng/mL B-Natriuretic Peptide 314 H (0-100) pg/mL Total Protein (6.4-8.2) g/dL Albumin (3.4-5.0) g/dL Triglycerides (42-150) mg/dL Cholesterol (120-200) mg/dL LDL Cholesterol, Calc (0-99) mg/dL HDL Cholesterol (40.0-60.0) mg/dL Cholesterol/HDL Ratio Ratio Lipase (73-393) U/L Beta HCG, Quant (0-5) mIU/mL Urine Color (Yellw/Straw) Urine Clarity (Clear) Urine pH (5.0-8.5) Ur Specific Mammoth (1.002-1.035) Urine Protein (Neg-Trace) mg/dL Urine Glucose (UA) (Negative) mg/dL Urine Ketones (Negative) mg/dL Urine Occult Blood (Negative) Urine Nitrate (Negative) Urine Bilirubin (Negative) Urine Urobilinogen (Less than 2) mg/dL Ur Leukocyte Esterase (Negative) Urine RBC (0-3) /hpf Urine WBC (0-5) /hpf Ur Squamous Epith Cells (0-5) /hpf Urine Mucus (Occasional) /lpf Micro UA Comment Ur Microscopic Review Urine Culture Comments Urine Opiates Screen (Neg) Ur Barbiturates Screen (Neg) Ur Amphetamines Screen (Neg) U Benzodiazepines Scrn (Neg) Urine Cocaine Screen (Neg) U Cannabinoids Screen (Neg) Blood Type Antibody Screen 02/01/18 02/01/18 02/01/18 Range/Units 07:38 09:50 12:00 WBC (4.0-11.0) th/mm3 RBC (4.00-5.30) mil/mm3 Hgb (11.6-15.3) gm/dL POC Hgb (Calc) (11.6-15.3) g/dL Hct (35.0-46.0) % POC Hct (35-46.0) % MCV (80.0-100.0) fL MCH (27.0-34.0) pg MCHC (32.0-36.0) % RDW (11.6-17.2) % Plt Count (150-450) th/mm3 MPV (7.0-11.0) fL Neut % (Auto) (16.0-70.0) % Lymph % (Auto) (9.0-44.0) % Gates % (Auto) (0.0-8.0) % Eos % (Auto) (0.0-4.0) % Baso % (Auto) (0.0-2.0) % Neut # (Auto) (1.8-7.7) th/mm3 Lymph # (Auto) (1.0-4.8) th/mm3 Gates # (Auto) (0.0-0.9) th/mm3 Eos # (Auto) (0.0-0.4) th/mm3 Baso # (Auto) (0.0-0.2) th/mm3 WBC Differential Differential Comment PT (9.8-11.6) sec INR Ratio APTT (23.4-31.7) sec Fibrinogen (227-377) mg/dL D-Dimer Quant (PE/DVT) (0.00-0.50) mg/L FEU Puncture Site Patient Temperature O2 Saturation (90-100) % ABG pH (7.380-7.420) ABG pCO2 (38-42) mmHg ABG pO2 (61-120) mmHg ABG HCO3 (22-26) mmol/L ABG O2 Content (12.0-20.0) Vol % ABG Base Excess (-2-2) mmol/L ABG Methemoglobin (0-2) % Arnoldo Test Hemoglobin (12.0-16.0) G/DL Carboxyhemoglobin (0-4) % Inspired O2 % Critical Value POC Sodium (137-144) mmol/L Sodium (136-145) meq/L POC Potassium (3.6-5.0) mmol/L Potassium (3.5-5.1) meq/L POC Chloride (102-111) mmol/L Chloride (98-107) meq/L Carbon Dioxide (21.0-32.0) meq/L Anion Gap (5-15) meq/L POC BUN (5-21) mg/dL BUN (7-18) mg/dL Creatinine (0.50-1.00) mg/dL POC Creatinine (0.6-1.3) mg/dL Estimated GFR (>89) mL/min POC Glucose 82 (68-110) mg/dl Random Glucose (74-106) mg/dL Calcium (8.5-10.1) mg/dL Magnesium (1.5-2.5) mg/dL Total Bilirubin (0.2-1.0) mg/dL AST (15-37) U/L ALT (10-53) U/L Alkaline Phosphatase (45-117) U/L Total Creatine Kinase 92 88 (26-192) U/L CK-MB (CK-2) (0.5-3.6) ng/mL Troponin I Less than 0.02 L Less than 0.02 L (0.02-0.05) ng/mL B-Natriuretic Peptide (0-100) pg/mL Total Protein (6.4-8.2) g/dL Albumin (3.4-5.0) g/dL Triglycerides (42-150) mg/dL Cholesterol (120-200) mg/dL LDL Cholesterol, Calc (0-99) mg/dL HDL Cholesterol (40.0-60.0) mg/dL Cholesterol/HDL Ratio Ratio Lipase (73-393) U/L Beta HCG, Quant (0-5) mIU/mL Urine Color (Yellw/Straw) Urine Clarity (Clear) Urine pH (5.0-8.5) Ur Specific Mammoth (1.002-1.035) Urine Protein (Neg-Trace) mg/dL Urine Glucose (UA) (Negative) mg/dL Urine Ketones (Negative) mg/dL Urine Occult Blood (Negative) Urine Nitrate (Negative) Urine Bilirubin (Negative) Urine Urobilinogen (Less than 2) mg/dL Ur Leukocyte Esterase (Negative) Urine RBC (0-3) /hpf Urine WBC (0-5) /hpf Ur Squamous Epith Cells (0-5) /hpf Urine Mucus (Occasional) /lpf Micro UA Comment Ur Microscopic Review Urine Culture Comments Urine Opiates Screen (Neg) Ur Barbiturates Screen (Neg) Ur Amphetamines Screen (Neg) U Benzodiazepines Scrn (Neg) Urine Cocaine Screen (Neg) U Cannabinoids Screen (Neg) Blood Type Antibody Screen 02/01/18 02/01/18 02/01/18 Range/Units 12:00 12:18 12:18 WBC 5.7 (4.0-11.0) th/mm3 RBC 3.49 L (4.00-5.30) mil/mm3 Hgb 10.8 L (11.6-15.3) gm/dL POC Hgb (Calc) (11.6-15.3) g/dL Hct 31.5 L (35.0-46.0) % POC Hct (35-46.0) % MCV 90.2 (80.0-100.0) fL MCH 31.0 (27.0-34.0) pg MCHC 34.4 (32.0-36.0) % RDW 14.5 (11.6-17.2) % Plt Count 187 (150-450) th/mm3 MPV 9.6 (7.0-11.0) fL Neut % (Auto) 51.2 (16.0-70.0) % Lymph % (Auto) 35.7 (9.0-44.0) % Gates % (Auto) 6.3 (0.0-8.0) % Eos % (Auto) 6.1 H (0.0-4.0) % Baso % (Auto) 0.7 (0.0-2.0) % Neut # (Auto) 2.9 (1.8-7.7) th/mm3 Lymph # (Auto) 2.0 (1.0-4.8) th/mm3 Gates # (Auto) 0.4 (0.0-0.9) th/mm3 Eos # (Auto) 0.3 (0.0-0.4) th/mm3 Baso # (Auto) 0.0 (0.0-0.2) th/mm3 WBC Differential . Differential Comment Auto diff final PT 10.7 (9.8-11.6) sec INR 1.1 Ratio APTT 24.1 (23.4-31.7) sec Fibrinogen 287 (227-377) mg/dL D-Dimer Quant (PE/DVT) (0.00-0.50) mg/L FEU Puncture Site Left radial Patient Temperature 98.6 O2 Saturation 93 (90-100) % ABG pH 7.42 (7.380-7.420) ABG pCO2 43 H (38-42) mmHg ABG pO2 73 (61-120) mmHg ABG HCO3 27 H (22-26) mmol/L ABG O2 Content 13.1 (12.0-20.0) Vol % ABG Base Excess 2.9 H (-2-2) mmol/L ABG Methemoglobin 0.3 (0-2) % Arnoldo Test Present Hemoglobin 10.0 L (12.0-16.0) G/DL Carboxyhemoglobin 1.4 (0-4) % Inspired O2 21 % Critical Value No POC Sodium (137-144) mmol/L Sodium (136-145) meq/L POC Potassium (3.6-5.0) mmol/L Potassium (3.5-5.1) meq/L POC Chloride (102-111) mmol/L Chloride (98-107) meq/L Carbon Dioxide (21.0-32.0) meq/L Anion Gap (5-15) meq/L POC BUN (5-21) mg/dL BUN (7-18) mg/dL Creatinine (0.50-1.00) mg/dL POC Creatinine (0.6-1.3) mg/dL Estimated GFR (>89) mL/min POC Glucose (68-110) mg/dl Random Glucose (74-106) mg/dL Calcium (8.5-10.1) mg/dL Magnesium (1.5-2.5) mg/dL Total Bilirubin (0.2-1.0) mg/dL AST (15-37) U/L ALT (10-53) U/L Alkaline Phosphatase (45-117) U/L Total Creatine Kinase (26-192) U/L CK-MB (CK-2) (0.5-3.6) ng/mL Troponin I (0.02-0.05) ng/mL B-Natriuretic Peptide (0-100) pg/mL Total Protein (6.4-8.2) g/dL Albumin (3.4-5.0) g/dL Triglycerides (42-150) mg/dL Cholesterol (120-200) mg/dL LDL Cholesterol, Calc (0-99) mg/dL HDL Cholesterol (40.0-60.0) mg/dL Cholesterol/HDL Ratio Ratio Lipase (73-393) U/L Beta HCG, Quant (0-5) mIU/mL Urine Color (Yellw/Straw) Urine Clarity (Clear) Urine pH (5.0-8.5) Ur Specific Mammoth (1.002-1.035) Urine Protein (Neg-Trace) mg/dL Urine Glucose (UA) (Negative) mg/dL Urine Ketones (Negative) mg/dL Urine Occult Blood (Negative) Urine Nitrate (Negative) Urine Bilirubin (Negative) Urine Urobilinogen (Less than 2) mg/dL Ur Leukocyte Esterase (Negative) Urine RBC (0-3) /hpf Urine WBC (0-5) /hpf Ur Squamous Epith Cells (0-5) /hpf Urine Mucus (Occasional) /lpf Micro UA Comment Ur Microscopic Review Urine Culture Comments Urine Opiates Screen (Neg) Ur Barbiturates Screen (Neg) Ur Amphetamines Screen (Neg) U Benzodiazepines Scrn (Neg) Urine Cocaine Screen (Neg) U Cannabinoids Screen (Neg) Blood Type Antibody Screen 02/01/18 02/01/18 02/01/18 Range/Units 12:18 12:18 12:18 WBC (4.0-11.0) th/mm3 RBC (4.00-5.30) mil/mm3 Hgb (11.6-15.3) gm/dL POC Hgb (Calc) 10.9 L (11.6-15.3) g/dL Hct (35.0-46.0) % POC Hct 32.0 L (35-46.0) % MCV (80.0-100.0) fL MCH (27.0-34.0) pg MCHC (32.0-36.0) % RDW (11.6-17.2) % Plt Count (150-450) th/mm3 MPV (7.0-11.0) fL Neut % (Auto) (16.0-70.0) % Lymph % (Auto) (9.0-44.0) % Gates % (Auto) (0.0-8.0) % Eos % (Auto) (0.0-4.0) % Baso % (Auto) (0.0-2.0) % Neut # (Auto) (1.8-7.7) th/mm3 Lymph # (Auto) (1.0-4.8) th/mm3 Gates # (Auto) (0.0-0.9) th/mm3 Eos # (Auto) (0.0-0.4) th/mm3 Baso # (Auto) (0.0-0.2) th/mm3 WBC Differential Differential Comment PT (9.8-11.6) sec INR Ratio APTT (23.4-31.7) sec Fibrinogen (227-377) mg/dL D-Dimer Quant (PE/DVT) (0.00-0.50) mg/L FEU Puncture Site Patient Temperature O2 Saturation (90-100) % ABG pH (7.380-7.420) ABG pCO2 (38-42) mmHg ABG pO2 (61-120) mmHg ABG HCO3 (22-26) mmol/L ABG O2 Content (12.0-20.0) Vol % ABG Base Excess (-2-2) mmol/L ABG Methemoglobin (0-2) % Arnoldo Test Hemoglobin (12.0-16.0) G/DL Carboxyhemoglobin (0-4) % Inspired O2 % Critical Value POC Sodium 140 (137-144) mmol/L Sodium (136-145) meq/L POC Potassium 4.3 (3.6-5.0) mmol/L Potassium (3.5-5.1) meq/L POC Chloride 101 L (102-111) mmol/L Chloride (98-107) meq/L Carbon Dioxide (21.0-32.0) meq/L Anion Gap (5-15) meq/L POC BUN 30 H (5-21) mg/dL BUN (7-18) mg/dL Creatinine (0.50-1.00) mg/dL POC Creatinine 1.0 (0.6-1.3) mg/dL Estimated GFR (>89) mL/min POC Glucose 80 (68-110) mg/dl Random Glucose (74-106) mg/dL Calcium (8.5-10.1) mg/dL Magnesium (1.5-2.5) mg/dL Total Bilirubin (0.2-1.0) mg/dL AST (15-37) U/L ALT (10-53) U/L Alkaline Phosphatase (45-117) U/L Total Creatine Kinase 93 (26-192) U/L CK-MB (CK-2) (0.5-3.6) ng/mL Troponin I Less than 0.02 L (0.02-0.05) ng/mL B-Natriuretic Peptide (0-100) pg/mL Total Protein (6.4-8.2) g/dL Albumin (3.4-5.0) g/dL Triglycerides 54 (42-150) mg/dL Cholesterol 107 L (120-200) mg/dL LDL Cholesterol, Calc 43 (0-99) mg/dL HDL Cholesterol 52.9 (40.0-60.0) mg/dL Cholesterol/HDL Ratio 2.02 Ratio Lipase (73-393) U/L Beta HCG, Quant 2 (0-5) mIU/mL Urine Color (Yellw/Straw) Urine Clarity (Clear) Urine pH (5.0-8.5) Ur Specific Mammoth (1.002-1.035) Urine Protein (Neg-Trace) mg/dL Urine Glucose (UA) (Negative) mg/dL Urine Ketones (Negative) mg/dL Urine Occult Blood (Negative) Urine Nitrate (Negative) Urine Bilirubin (Negative) Urine Urobilinogen (Less than 2) mg/dL Ur Leukocyte Esterase (Negative) Urine RBC (0-3) /hpf Urine WBC (0-5) /hpf Ur Squamous Epith Cells (0-5) /hpf Urine Mucus (Occasional) /lpf Micro UA Comment Ur Microscopic Review Urine Culture Comments Urine Opiates Screen (Neg) Ur Barbiturates Screen (Neg) Ur Amphetamines Screen (Neg) U Benzodiazepines Scrn (Neg) Urine Cocaine Screen (Neg) U Cannabinoids Screen (Neg) Blood Type O Positive Antibody Screen Negative 02/01/18 02/01/18 Range/Units 16:46 16:46 WBC (4.0-11.0) th/mm3 RBC (4.00-5.30) mil/mm3 Hgb (11.6-15.3) gm/dL POC Hgb (Calc) (11.6-15.3) g/dL Hct (35.0-46.0) % POC Hct (35-46.0) % MCV (80.0-100.0) fL MCH (27.0-34.0) pg MCHC (32.0-36.0) % RDW (11.6-17.2) % Plt Count (150-450) th/mm3 MPV (7.0-11.0) fL Neut % (Auto) (16.0-70.0) % Lymph % (Auto) (9.0-44.0) % Gates % (Auto) (0.0-8.0) % Eos % (Auto) (0.0-4.0) % Baso % (Auto) (0.0-2.0) % Neut # (Auto) (1.8-7.7) th/mm3 Lymph # (Auto) (1.0-4.8) th/mm3 Gates # (Auto) (0.0-0.9) th/mm3 Eos # (Auto) (0.0-0.4) th/mm3 Baso # (Auto) (0.0-0.2) th/mm3 WBC Differential Differential Comment PT (9.8-11.6) sec INR Ratio APTT (23.4-31.7) sec Fibrinogen (227-377) mg/dL D-Dimer Quant (PE/DVT) (0.00-0.50) mg/L FEU Puncture Site Patient Temperature O2 Saturation (90-100) % ABG pH (7.380-7.420) ABG pCO2 (38-42) mmHg ABG pO2 (61-120) mmHg ABG HCO3 (22-26) mmol/L ABG O2 Content (12.0-20.0) Vol % ABG Base Excess (-2-2) mmol/L ABG Methemoglobin (0-2) % Arnoldo Test Hemoglobin (12.0-16.0) G/DL Carboxyhemoglobin (0-4) % Inspired O2 % Critical Value POC Sodium (137-144) mmol/L Sodium (136-145) meq/L POC Potassium (3.6-5.0) mmol/L Potassium (3.5-5.1) meq/L POC Chloride (102-111) mmol/L Chloride (98-107) meq/L Carbon Dioxide (21.0-32.0) meq/L Anion Gap (5-15) meq/L POC BUN (5-21) mg/dL BUN (7-18) mg/dL Creatinine (0.50-1.00) mg/dL POC Creatinine (0.6-1.3) mg/dL Estimated GFR (>89) mL/min POC Glucose (68-110) mg/dl Random Glucose (74-106) mg/dL Calcium (8.5-10.1) mg/dL Magnesium (1.5-2.5) mg/dL Total Bilirubin (0.2-1.0) mg/dL AST (15-37) U/L ALT (10-53) U/L Alkaline Phosphatase (45-117) U/L Total Creatine Kinase (26-192) U/L CK-MB (CK-2) (0.5-3.6) ng/mL Troponin I (0.02-0.05) ng/mL B-Natriuretic Peptide (0-100) pg/mL Total Protein (6.4-8.2) g/dL Albumin (3.4-5.0) g/dL Triglycerides (42-150) mg/dL Cholesterol (120-200) mg/dL LDL Cholesterol, Calc (0-99) mg/dL HDL Cholesterol (40.0-60.0) mg/dL Cholesterol/HDL Ratio Ratio Lipase (73-393) U/L Beta HCG, Quant (0-5) mIU/mL Urine Color Yellow (Yellw/Straw) Urine Clarity Clear (Clear) Urine pH 6.0 (5.0-8.5) Ur Specific Mammoth 1.032 (1.002-1.035) Urine Protein Negative (Neg-Trace) mg/dL Urine Glucose (UA) Negative (Negative) mg/dL Urine Ketones Negative (Negative) mg/dL Urine Occult Blood Negative (Negative) Urine Nitrate Negative (Negative) Urine Bilirubin Negative (Negative) Urine Urobilinogen Less than 2 (Less than 2) mg/dL Ur Leukocyte Esterase Trace H (Negative) Urine RBC 1 (0-3) /hpf Urine WBC 1 (0-5) /hpf Ur Squamous Epith Cells 2 (0-5) /hpf Urine Mucus Few H (Occasional) /lpf Micro UA Comment Culture not ind Ur Microscopic Review Not Reportable Urine Culture Comments Culture not ind Urine Opiates Screen Neg (Neg) Ur Barbiturates Screen Neg (Neg) Ur Amphetamines Screen Neg (Neg) U Benzodiazepines Scrn Neg (Neg) Urine Cocaine Screen Neg (Neg) U Cannabinoids Screen Neg (Neg) Blood Type Antibody Screen Imaging Data Radiologist's impression: Chest X-Ray 02/01/18 03:41 CONCLUSION: No acute cardiopulmonary disease. Head CT 02/01/18 03:42 CONCLUSION: 1. No acute intracranial abnormality. . Chest CTA 02/01/18 05:14 CONCLUSION: 1. No pulmonary emboli. 2. Cardiomegaly. 3. Left basilar atelectasis. Chest X-Ray 02/01/18 12:16 CONCLUSION: There is a parenchymal infiltrate in the left lower lung. Head CT 02/01/18 12:16 CONCLUSION: 1. No focal or acute intracranial hemorrhage. Report was called by [Dr. Javed to Dr. Leon at 12:30 PM ] Head CTA 02/01/18 12:16 CONCLUSION: 1. No evidence of acute occlusion. Report was called by [ Dr. Javed to Dr. Leon at 12:30 PM] Neck CTA 02/01/18 12:16 CONCLUSION: 1. There are some calcified plaquing at both carotid bifurcations. 2. No evidence of any focal or high-grade stenosis. 3. Both internal carotid arteries are patent throughout their extent. There is tortuosity of both internal carotid arteries. ECG Data Attestation: I personally reviewed and interpreted this ECG as follows: Interpretation: The patient had an EKG done on arrival. The patient's EKG reveals a sinus rhythm with a sinus arrhythmia, heart rate of 74, QRS duration is 88 ms, QTC 400 ms. T waves are inverted in lead II, 3, aVF, V3, V4, V5. Discharge Plan Discharge Disposition Patient Disposition: 30 Still Patient Discharge Order Discharge Orders: ED Use Only Admit Order (Routine); Ordered 02/01/18 Ordered By: Michaela Rodriguez Discharge Details Diagnosis: Chest pain, rule out acute myocardial infarction Physicians Team ED Provider: Michaela Rodriguez Primary Care Provider: UNKNOWN, Attending Provider: Abelino Muse Other Providers: Roldan Leon Status ED Status: Left Department Discharge Information Discharge Date/Time: 02/01/18 09:27
--- NOTE | 2018-02-01 06:18 | CT ---
EXAM DATE: 02/01/2018 5:53 AM EST AGE/SEX: 87 years / Female INDICATIONS: Elevated D-Dimer. CLINICAL DATA: This is the patient's initial encounter. Patient reports that signs and symptoms have been present for 1 day and indicates a pain score of 0/10. MEDICAL/SURGICAL HISTORY: Cardiovascular disease. Hypertension. Gastroesophageal reflux disease. Appendectomy. Colon resection. RADIATION DOSE: 8.93 CTDI (mGy) [place] [facility] [place] 3[place]. . TECHNIQUE: Volumetric scanning was performed using a multi-row detector CT scanner during bolus infu jing of 60 ml Omnipaque 350 (iohexol) nonionic water-soluble contrast as a single exam dose. The perla a was post processed with a variety of visualization algorithms including full volume maximum intensi ty projection and sliding thin slab reformation. Using automated exposure control and adjustment of t he mA and/or kV according to patient size, radiation dose was kept as low as reasonably achievable to obtain optimal diagnostic quality images. DICOM format image data is available electronically for r eview and comparison. FINDINGS: Pulmonary Arteries: No filling defects are seen in the pulmonary arteries out to the subsegmental ve ssels. The left and right pulmonary arteries are normal in diameter. Lung: Chronic elevation of the left hemidiaphragm. Mild left basilar atelectasis. No infiltrates.. Effusion: None. Mediastinum: Mild cardiomegaly. No pericardial effusion. No evidence of mediastinal or hilar adenopa thy. Other: The axilla is unremarkable. Advanced osteoarthritis involving the right shoulder including er osive changes of the glenoid. Stable 1.5 cm hepatic cyst within the left lobe. CONCLUSION: 1. No pulmonary emboli. 2. Cardiomegaly. 3. Left basilar atelectasis. Electronically signed by: Murali Oneal MD 02/01/2018 6:16 AM EST
--- NOTE | 2018-02-01 08:40 | P.HPCA ---
History of Present Illness Primary Care Physician: UNKNOWN Chief Complaint: Chest pain History of Present Illness: This is an 87-year-old this [id number] female patient in the presents to ED with past history of paroxysmal atrial fibrillation, atrial tachycardia, congestive heart failure with left ventricular hypertrophy, COPD, hypertension, hypothyroidism, chronic back pain that presents to ED to be evaluated for chest discomfort patient states that family woke her up to move her from a chair to her bedroom and when doing so she developed a chest pain with discomfort in her left arm as well. She really cannot recall how long it lasted. Cannot recall she is short of breath, nauseous, diaphoretic. For now she does not have any 3 of CAD, cannot recall last stress testing. Upon review of records she had a nonischemic Lexiscan here in 2011. [address] Ck Morales of cardiology however she does not recall seeing him recently. Feeling okay at this time. History of paroxysmal atrial fibrillation, atrial tachycardia, CHF, LVH, COPD, hypertension, hypothyroidism, and chronic back pain. Denies diabetes, CAD, and hyperlipidemia. She smoked about 1/2 pack of cigarettes a day for 10 years but has not smoked since the 1960s. - Diagnosis (1) Chest pain (2) Paroxysmal atrial fibrillation (3) Hypertension Review of Systems General: Patient denies fevers, chills, and recent travel. HEENT: Patient denies headache, sore throat, difficulty swallowing. Cardiovascular: Has the chest discomfort as mentioned above. Denies sensation of heart beating rapidly or irregularly. No syncope. Does not recall being diaphoretic. Respiratory: Cannot recall being short of breath. Denies inspirational chest discomfort. Denies coughing wheezing or hemoptysis. GI: Patient denies nausea, vomiting, diarrhea, abdominal pain, bloody stools. Musculoskeletal: Patient denies joint pain or edema. Denies calf pain or edema. Neurovascular: Patient denies numbness, tingling, weakness in extremities. Denies headache. Endocrine: Denies polyuria and polydipsia. Hematologic: Denies easy bruising. Skin: Denies rash or itching. PMF - History History Provided By: Patient, Family Member - Medical History Medical History: Medical History (Last Reviewed 02/01/18 @ 05:30 by Michaela Rodriguez MD) Cardiac arrest (Acute) History of esophageal stricture (Acute) Back pain (Acute) Arthritis (Acute) GERD (gastroesophageal reflux disease) (Acute) Hyperthyroidism (Acute) Hypertension (Acute) Atrial fibrillation (Acute) - Surgical History Surgical History: Surgical History (Last Reviewed 02/01/18 @ 05:30 by Michaela Rodriguez MD) History of repair of left rotator cuff (Acute) History of partial colectomy (Acute) History of appendectomy (Acute) History of total right hip replacement (Acute) History of right knee surgery (Acute) History of phacoemulsification of cataract of both eyes with intraocular lens implantation (Acute) - Tobacco History Second Hand Smoke Exposure: No Tobacco Use In Past 30 Days: No Smoking Status: Former smoker Tobacco Type: Cigarettes - Alcohol History How Often Do You Have a Drink Containing Alcohol: Never - Substance Use History Substance History: No History of Abuse - Immunization History Tetanus Immunization: Unsure Medications and Allergies Active Medications: Active Medications Sodium Chloride (Ns Flush) 2 ml IV.FLUSH UNSCH PRN PRN Reason: FLUSH AFTER USING IV ACCESS Sodium Chloride (Ns Flush) 2 ml IV.FLUSH BID DIETER Sodium Chloride (Ns Flush) 2 ml IV.FLUSH PRN PRN PRN Reason: FLUSH AFTER USING IV ACCESS Allergies Allergy/AdvReac Type Severity Reaction Status Date / Time meloxicam Allergy Severe Anaphylaxis Verified 02/01/18 03:01 morphine Allergy Severe Anaphylaxis Verified 02/01/18 03:01 Home Medications Medication Instructions Recorded Confirmed Type amitriptyline 25 mg PO DAILY 08/31/17 09/03/17 History amlodipine 5 mg PO DAILY 08/31/17 09/03/17 History diclofenac sodium 75 mg PO BID 08/31/17 09/03/17 History digoxin 0.125 mg PO DAILY 08/31/17 09/03/17 History gabapentin 600 mg PO TID 08/31/17 09/03/17 History hydrocodone-acetaminophen 1 tab PO TID PRN 08/31/17 09/03/17 History levothyroxine 50 mcg PO DAILY 08/31/17 09/03/17 History lisinopril 10 mg PO DAILY 08/31/17 09/03/17 History metoprolol tartrate 75 mg PO BID 08/31/17 09/03/17 History omeprazole 20 mg PO BID 08/31/17 09/03/17 History sucralfate [Carafate] 1 g PO TID 08/31/17 09/03/17 History zolpidem 1 tab PO HS 08/31/17 09/03/17 History Exam Vital signs: Vital Signs 02/01/18 03:03 02/01/18 03:11 02/01/18 06:43 Temperature 97.4 F L 97.4 F L Pulse Rate 68 76 75 Respiratory Rate 18 15 16 Blood Pressure 138/64 123/58 L 99/50 L Pulse Oximetry 99 97 02/01/18 07:37 Temperature 98.7 F Pulse Rate 75 Respiratory Rate 18 Blood Pressure 126/60 Pulse Oximetry 100 Narrative: GENERAL: This is a well-nourished, well-developed patient, in no apparent distress. Patient speaks in clear complete sentences. Patient is pleasant. HEENT: Head is atraumatic and normocephalic. Neck is supple without lymphadenopathy and trachea is midline. No JVD or carotid bruits. CARDIOVASCULAR: Grade 2 systolic murmur left sternal border, grade 2 systolic murmur at right sternal border radiating towards the neck. Regular rate and rhythm without gallops or rubs. RESPIRATORY: Clear to auscultation. Breath sounds equal bilaterally. No wheezes , rales, or rhonchi. Chest wall is nontender. No use of accessory muscles. GASTROINTESTINAL: Abdomen is nontender, nondistended. Abdomen soft. No obvious pulsatile mass or bruit. No CVA tenderness. Strong femoral pulses bilaterally. Normal bowel sounds in all quadrants. MUSCULOSKELETAL: Patient is moving upper and lower extremities freely. No calf tenderness or edema, no Homans sign. Strong pulses in upper and lower extremities. NEUROLOGICAL: Patient is alert and oriented. Cranial nerves 2-12 are grossly intact. No focal deficits and speech is clear. SKIN: No rash and turgor is normal. Results 02/01/18 04:00 02/01/18 04:00 Cardiac Enzymes 02/01/18 02/01/18 02/01/18 Range/Units 04:00 04:00 04:00 AST 15 (15-37) U/L CK-MB (CK-2) 1.6 (0.5-3.6) ng/mL Troponin I Less than 0.02 L (0.02-0.05) ng/mL B-Natriuretic Peptide 314 H (0-100) pg/mL Coagulation 02/01/18 02/01/18 Range/Units 04:00 04:00 PT 10.8 (9.8-11.6) sec APTT 23.9 (23.4-31.7) sec B-Natriuretic Peptide 314 H (0-100) pg/mL CBC 02/01/18 Range/Units 04:00 WBC 5.3 (4.0-11.0) th/mm3 RBC 3.48 L (4.00-5.30) mil/mm3 Hgb 10.7 L (11.6-15.3) gm/dL Hct 31.1 L (35.0-46.0) % Plt Count 181 (150-450) th/mm3 Neut # (Auto) 3.2 (1.8-7.7) th/mm3 Lymph # (Auto) 1.4 (1.0-4.8) th/mm3 [place] # (Auto) 0.3 (0.0-0.9) th/mm3 Eos # (Auto) 0.3 (0.0-0.4) th/mm3 Baso # (Auto) 0.0 (0.0-0.2) th/mm3 Comprehensive Metabolic Panel 02/01/18 Range/Units 04:00 Sodium 139 (136-145) meq/L Potassium 3.9 (3.5-5.1) meq/L Chloride 105 (98-107) meq/L Carbon Dioxide 28.7 (21.0-32.0) meq/L BUN 33 H (7-18) mg/dL Creatinine 1.34 H (0.50-1.00) mg/dL Calcium 8.6 (8.5-10.1) mg/dL AST 15 (15-37) U/L ALT 15 (10-53) U/L Alkaline Phosphatase 71 (45-117) U/L Total Protein 6.7 (6.4-8.2) g/dL Albumin 3.4 (3.4-5.0) g/dL - Imaging and Cardiology Imaging: Impressions Chest X-Ray 02/01/18 03:41 CONCLUSION: No acute cardiopulmonary disease. Head CT 02/01/18 03:42 CONCLUSION: 1. No acute intracranial abnormality. . Chest CTA 02/01/18 05:14 CONCLUSION: 1. No pulmonary emboli. 2. Cardiomegaly. 3. Left basilar atelectasis. EKG interpretations - EKG EKG shows: sinus rhythm (EKG is a sinus rhythm with nonspecific ST-T changes that were there on a prior EKG. This was reviewed with Dr. Ck Morales.) Caprini VTE Risk Assessment Caprini VTE Risk Assessment: Moderate/High Risk (score >= 2) Caprini Risk Assessment Model: Point Value = 1 Point Value = 2 Point Value = 3 Point Value = 5 Age 41-60 Minor surgery BMI > 25 kg/m2 Swollen legs Varicose veins or History of unexplained or recurrent spontaneous Oral contraceptives or hormone replacement Sepsis (< 1 month) Serious lung disease, including pneumonia (< 1 month) Abnormal pulmonary function Acute myocardial infarction Congestive heart failure (< 1 month) History of inflammatory bowel disease Medical patient at bed rest Age 61-74 Arthroscopic surgery Major open surgery (> 45 min) Laparoscopic surgery (> 45 min) Malignancy Confined to bed (> 72 hours) Immobilizing plaster cast Central venous access Age >= 75 History of VTE Family history of VTE Factor V Leiden Prothrombin [id number] Lupus anticoagulant Anticardiolipin antibodies Elevated serum homocysteine Heparin-induced thrombocytopenia Other congenital or acquired thrombophilia Stroke (< 1 month) Elective arthroplasty Hip, pelvis, or leg fracture Acute spinal cord injury (< 1 month) Prophylaxis Regimen: Total Risk Factor Score Risk Level Prophylaxis Regimen 0-1 Low Early ambulation 2 Moderate Order ONE of the following: *Sequential Compression Device (SCD) *Heparin 5000 units SQ BID 3-4 Higher Order ONE of the following medications: *Heparin 5000 units SQ TID *Enoxaparin/Lovenox 40 mg SQ daily (WT < 150 kg, CrCl > 30 mL/min) *Enoxaparin/Lovenox 30 mg SQ daily (WT < 150 kg, CrCl > 10-29 mL/min) *Enoxaparin/Lovenox 30 mg SQ BID (WT < 150 kg, CrCl > 30 mL/min) AND/OR *Sequential Compression Device (SCD) 5 or more Highest Order ONE of the following medications: *Heparin 5000 units SQ TID (Preferred with Epidurals) *Enoxaparin/Lovenox 40 mg SQ daily (WT < 150 kg, CrCl > 30 mL/min) *Enoxaparin/Lovenox 30 mg SQ daily (WT < 150 kg, CrCl > 10-29 mL/min) *Enoxaparin/Lovenox 30 mg SQ BID (WT < 150 kg, CrCl > 30 mL/min) AND *Sequential Compression Device (SCD) Assessment and Plan - Assessment (1) Chest pain Code(s): R07.9 - Chest pain, unspecified Status: Acute (2) Paroxysmal atrial fibrillation Code(s): I48.0 - Paroxysmal atrial fibrillation Status: Acute (3) Hypertension Code(s): I10 - Essential (primary) hypertension Status: Acute - Plan * Chest pain: Patient will continue to have serial cardiac enzymes and EKGs for ruling out purposes. She has been evaluated by Dr. Ck Morales of cardiology and the chest pain center and will have a Lexiscan if she rules out. She will be discharged home if her stress test is nonischemic with instructions to follow-up with her PCP and purchasing intern. Return to ED for interval issues. * Paroxysmal atrial ablation: Continue medication. * Hypertension: Continue medication. Patient is stable at this time. She is agreeable to this plan.
[2018-02-01 08:51] LABS: Creatine Kinase 92 U/L (26-192)
[2018-02-01 11:15] LABS: Creatine Kinase 88 U/L (26-192)
[2018-02-01 12:17] LABS: ABG Base Excess 2.9 mmol/L (-2-2); ABG PCO2 43 mmHg (38-42); ABG PO2 73 mmHg (61-120)
--- NOTE | 2018-02-01 12:38 | CT ---
EXAM DATE: 02/01/2018 12:27 PM EST AGE/SEX: 87 years / Female INDICATIONS: Unresponsive CLINICAL DATA: This is the patient's initial encounter. Patient reports that signs and symptoms have been present for 1 day and indicates a pain score of 0/10. MEDICAL/SURGICAL HISTORY: . Unable to obtain . unable to obtain RADIATION DOSE: 53.22 CTDI (mGy) COMPARISON: [facility], CTA HEAD W CONTRAST W 3D, 02/01/2018. . TECHNIQUE: CT of the head without contrast. Using automated exposure control and adjustment of the mA and/or kV according to patient size, radiation dose was kept as low as reasonably achievable to ob tain optimal diagnostic quality images. DICOM format image data is available electronically for revi ew and comparison. FINDINGS: Cerebrum: The ventricles are normal for age. There is bilateral cortical atrophy and chronic white matter changes. No evidence of midline shift, mass lesion, hemorrhage or acute infarction. No extraa xial fluid collections are seen. Posterior Fossa: The cerebellum and brainstem are intact. The 4th ventricle is midline. The cerebe llopontine angle is unremarkable. Extracranial: The visualized portion of the orbits is intact. Skull: The calvaria is intact. No evidence of skull fracture. CONCLUSION: 1. No focal or acute intracranial hemorrhage. Report was called by [Dr. Javed to Dr. Leon at 12:30 PM ] Electronically signed by: Teja Javed MD 02/01/2018 12:36 PM EST
[2018-02-01 12:39] LABS: Baso % (Auto) 0.7 % (0.0-2.0); Eos # (Auto) 0.3 th/mm3 (0.0-0.4); Eos % (Auto) 6.1 % (0.0-4.0); Hematocrit 31.5 % (35.0-46.0); Hemoglobin 10.8 gm/dL (11.6-15.3); Lymph % (Auto) 35.7 % (9.0-44.0); Mean Corpuscular HGB Conc 34.4 % (32.0-36.0); Mean Corpuscular Volume 90.2 fL (80.0-100.0); Mean Platelet Volume 9.6 fL (7.0-11.0); Mono # (Auto) 0.4 th/mm3 (0.0-0.9); Mono % (Auto) 6.3 % (0.0-8.0); Neut # (Auto) 2.9 th/mm3 (1.8-7.7); Neut % (Auto) 51.2 % (16.0-70.0); Platelet Count 187 th/mm3 (150-450); Red Blood Count 3.49 mil/mm3 (4.00-5.30); Red Cell Distribution Width 14.5 % (11.6-17.2); White Blood Count 5.7 th/mm3 (4.0-11.0)
[2018-02-01 12:49] LABS: Activated Partial Thrombo Time 24.1 sec (23.4-31.7); INR 1.1 Ratio; Prothrombin Time 10.7 sec (9.8-11.6)
--- NOTE | 2018-02-01 12:49 | CT ---
EXAM DATE: 02/01/2018 12:39 PM EST AGE/SEX: 87 years / Female INDICATIONS: Unresponsive CLINICAL DATA: This is the patient's initial encounter. Patient reports that signs and symptoms have been present for 1 day and indicates a pain score of 0/10. MEDICAL/SURGICAL HISTORY: . unable to obtain . Unable to obtain RADIATION DOSE: 9.74 CTDI (mGy) [place] [facility] [place], [place]/2018. . TECHNIQUE: Volumetric scanning was performed using a multi-row detector CT scanner during bolus infu jing of 75 ml Visipaque 320 (iodixanol) nonionic water-soluble contrast as a cumulative dose for mul tiple exams. The data was post processed with a variety of visualization algorithms including full volume maximum intensity projection, multi-planar sliding thin slab reformation, curved planar reform ation, and surface rendering techniques. Using automated exposure control and adjustment of the mA a nd/or kV according to patient size, radiation dose was kept as low as reasonably achievable to obtain optimal diagnostic quality images. DICOM format image data is available electronically for review a nd comparison. FINDINGS: There is excellent visualization of the major intracranial arteries out to the second-order branch ve ssels. There is no evidence for aneurysm, vessel truncation or stenosis, and no evidence for vascula r malformation. CONCLUSION: 1. No evidence of acute occlusion. Report was called by [ Dr. Javed to Dr. Leon at 12:30 PM] Electronically signed by: Teja Javed MD 02/01/2018 12:47 PM EST
[2018-02-01] MEDS ORDERED: Heparin Drip 25,000 UNIT/250 ML BAG IV.CONT PRN (12:55)
--- NOTE | 2018-02-01 12:56 | XR ---
EXAM DATE: 02/01/2018 12:46 PM EST AGE/SEX: 87 years / Female INDICATIONS: Stroke alert. CLINICAL DATA: This is the patient's subsequent encounter. Patient reports that signs and symptoms h ave been present for 2 days and indicates a pain score of 0/10. MEDICAL/SURGICAL HISTORY: Congestive heart failure. Hypertension. Chronic obstructive pulmona ry disease. Afib, GERD . Hiatal hernia repair. Hysterectomy. Bladder sx. R rotator cuff repair. Rig ht hip replacement. Right carpal tunnel sx COMPARISON: [facility], CHEST 1V SINGLE AP, 02/01/2018. . FINDINGS: There is a parenchymal infiltrate in the left lower lung. The right lung is grossly clear. There is s ome chronic interstitial changes bilaterally. The heart size is enlarged but without significant nagy ge compared to the prior examination. The bony structures are stable with degenerative changes involv ing both shoulder joints. CONCLUSION: There is a parenchymal infiltrate in the left lower lung. Electronically signed by: Teja Javed MD 02/01/2018 12:54 PM EST
[2018-02-01 13:01] LABS: Beta HCG,Quantitative 2 mIU/mL (0-5)
--- NOTE | 2018-02-01 13:02 | CT ---
EXAM DATE: 02/01/2018 12:52 PM EST AGE/SEX: 87 years / Female INDICATIONS: Unresponsive CLINICAL DATA: This is the patient's initial encounter. Patient reports that signs and symptoms have been present for 1 day and indicates a pain score of 0/10. MEDICAL/SURGICAL HISTORY: . Unable to obtain . unable to obtain RADIATION DOSE: 9.74 CTDI (mGy) ; Combined studies COMPARISON: No prior exams available for comparison. TECHNIQUE: Volumetric scanning was performed using a multirow detector CT scanner during bolus infus ion of 75 ml Visipaque 320 (iodixanol) nonionic water-soluble contrast as a cumulative dose for mu ltiple exams. The data was postprocessed with a variety of visualization algorithms including full- volume maximum intensity projection, multiplanar sliding thin-slab reformation, curved-planar reforma tion, and surface-rendering techniques. Using automated exposure control and adjustment of the mA an d/or kV according to patient size, radiation dose was kept as low as reasonably achievable to obtain optimal diagnostic quality images. DICOM format image data is available electronically for review an d comparison. FINDINGS: Aortic Arch: There is a three-vessel origin of the great vessels from the aorta. No evidence of ost ial narrowing. There is some plaquing along the thoracic aortic arch. Right Carotid: The common carotid artery is intact. There is some calcified plaquing at the carotid bifurcation. No focal or high-grade stenosis is seen. The right internal carotid artery is patent thr oughout its extent. There is moderate tortuosity of the right internal carotid artery. The external c arotid artery is patent. Left Carotid: The common carotid artery is intact. There is some focal calcified plaquing at the car otid bifurcation. No focal or high-grade stenosis is demonstrated. The internal carotid artery is pat ent throughout its extent. There is tortuosity of the left internal carotid artery. The external neff tid artery is patent.. Vertebrals: The vertebral arteries have a symmetric diameter. No stenotic lesions are seen. Percent stenosis is calculated using the diameter of the stenotic region over the diameter of the nor mal distal internal carotid artery. CONCLUSION: 1. There are some calcified plaquing at both carotid bifurcations. 2. No evidence of any focal or high-grade stenosis. 3. Both internal carotid arteries are patent throughout their extent. There is tortuosity of both in ternal carotid arteries. Electronically signed by: Teja Javed MD 02/01/2018 1:01 PM EST
[2018-02-01 13:04] LABS: Creatine Kinase 93 U/L (26-192)
[2018-02-01] MEDS: Metoprolol Tartrate 25 MG Tablet PO SCH ×2 (13:23→22:27)
[2018-02-01] MEDS: Digoxin 125 MCG Tablet PO SCH (13:23)
[2018-02-01] MEDS: Gabapentin 300 MG Capsule PO SCH ×2 (13:24→17:57)
--- NOTE | 2018-02-01 14:24 | MB ---
cc: Roldan Leon MD, PhD DATE: 02/01/2018 REASON FOR CONSULTATION: Stroke alert. HISTORY OF PRESENT ILLNESS: Ms. Sheehan is an 87-year-old female who has history of atrial fibrillation, who presented to the chest pain clinic with chest pain. While in the clinic had sudden loss of consciousness. She has noted upon awakening to have some weakness on the left side with left door maker. A stroke alert was called. Since the onset, however, her symptoms have completely resolved. She feels back to normal at the present time. PAST MEDICAL HISTORY: History of atrial fibrillation, congestive heart failure, left ventricular hypertrophy, COPD, hypertension, hypothyroidism, back pain, GERD, history of cardiac arrest, left rotator cuff surgery, partial colectomy, appendectomy, right knee surgery, cataract surgery. HOME MEDICATIONS: 1. Elavil. 2. Amlodipine. 3. Diclofenac. 4. Digoxin. 5. Gabapentin. 6. Hydrocodone. 7. Levothyroxine. 8. Lisinopril. 9. Metoprolol. 10. Omeprazole. 11. Sucralfate. 12. Zolpidem. NEUROLOGIC EXAMINATION: VITAL SIGNS: Her blood pressure is 118/56, pulse is 73, respirations 16, temperature 98 degrees. HIGHER CORTICAL FUNCTION: She is alert, oriented. Speech is normal. Follows commands. Cranial nerves are intact. Motor exam: She has got 5/5 in all groups in both upper extremities, as well as both lower extremities. There is no drift. Reflexes are symmetric. IMAGING STUDIES: CT of the brain is negative for any acute change. There is atrophy and chronic ischemic change identified. No hemorrhage. CTA of the brain is negative for any large vessel occlusion. CTA neck: No evidence for any significant stenosis is identified in the carotid arteries. Chest CTA: No pulmonary emboli identified. There is cardiomegaly and basilar atelectasis. LABORATORY DATA: White count is 5700, hemoglobin 10.8, hematocrit 31.5%, platelet count is 187,000. The PT is 10.7, INR 1.1, aPTT 24.1. Sodium is 140, potassium 4.3, chloride 101, CO2 is 30, BUN is 30, creatinine is 1.0, glucose is 80. IMPRESSION: Probable transient ischemic attack. RECOMMENDATION: Given the atrial fibrillation, I would recommend starting IV heparin and consider long-term anticoagulation if not contraindicated. We will get MRI of the brain as well as an echocardiogram and lipid panel for further evaluation. The patient is not a TPA candidate because of the complete resolution of symptoms. There is no evidence for any large vessel occlusion for endovascular therapy. Roldan Leon MD, PhD DC/kwasi , 01:41 PM , 01:50 PM
[2018-02-01 14:37] LABS: Chol/HDL Ratio 2.02 Ratio; HDL Cholesterol 52.9 mg/dL (40.0-60.0)
[2018-02-01] MEDS: amLODIPine 5 MG Tablet PO SCH (14:57)
--- NOTE | 2018-02-01 15:44 | ECG ---
Date Performed: 02/01/2018 Time Performed: 10:46:28 PTAGE: 87 years EKG: Sinus rhythm PROBABLE LATERAL MYOCARDIAL INFARCTION ST DEVIATION AND MODERATE T-WAVE ABNORMALITY, CONSIDER ANTERI OR ISCHEMIA ABNORMAL ECG PREVIOUS TRACING : 02/01/2018 10.44 DOCTOR: Ck Morales Interpretating Date/Time 02/01/2018 15:44:19
--- NOTE | 2018-02-01 15:44 | ECG ---
Date Performed: 02/01/2018 Time Performed: 09:07:29 PTAGE: 87 years EKG: Sinus rhythm ST DEVIATION AND MODERATE T-WAVE ABNORMALITY, CONSIDER ANTEROLATERAL ISCHEMIA ST DEVIATION AND MODER ATE T-WAVE ABNORMALITY, CONSIDER INFERIOR ISCHEMIA ABNORMAL ECG PREVIOUS TRACING : 02/01/2018 03.29 Since previous tracing, no significant change noted DOCTOR: Ck Morales Interpretating Date/Time 02/01/2018 15:44:30
--- NOTE | 2018-02-01 15:45 | ECG ---
Date Performed: 02/01/2018 Time Performed: 03:29:34 PTAGE: 87 years EKG: Sinus rhythm WITH SINUS ARRHYTHMIA ST DEVIATION AND MARKED T-WAVE ABNORMALITY, CONSIDER ANTEROLATERAL ISCHEMIA ST DEVIATION AND MODERATE T-WAVE ABNORMALITY, CONSIDER INFERIOR ISCHEMIA ABNORMAL ECG NO PREVIOUS TRACING DOCTOR: Ck Morales Interpretating Date/Time 02/01/2018 15:45:07
--- NOTE | 2018-02-01 15:46 | ECG ---
Date Performed: 02/01/2018 Time Performed: 12:04:26 PTAGE: 87 years EKG: Sinus rhythm ST DEVIATION AND MODERATE T-WAVE ABNORMALITY, CONSIDER ANTEROLATERAL ISCHEMIA ABNORMAL ECG INTERPRET ATION BASED ON A DEFAULT AGE OF 40 YEARS PREVIOUS TRACING : 02/01/2018 10.46 Since previous tracing, no significant change noted DOCTOR: Ck Morales Interpretating Date/Time 02/01/2018 15:45:50
[2018-02-01 17:09] LABS: Bilirubin,Urine Negative (Negative); Clarity,Urine Clear (Clear); Color,Urine Yellow (Yellw/Straw); Glucose,Urine (UA) Negative (Negative); Leukocyte Esterase,Urine Trace (Negative); Mucus,Urine Few /lpf (Occasional); Nitrite,Urine Negative (Negative); Specific Gravity,Urine 1.032 (1.002-1.035); Squamous Epithelial Cell,Urine 2 /hpf (0-5)
[2018-02-01 17:15] LABS: Amphetamine Screen,Urine Neg (Neg); Barbiturate Screen,Urine Neg (Neg); Cannabinoid Screen,Urine Neg (Neg); Cocaine Screen,Urine Neg (Neg)
[2018-02-01 17:16] LABS: Opiate Screen,Urine Neg (Neg)
--- NOTE | 2018-02-01 19:17 | CT ---
EXAM DATE: 02/01/2018 7:13 PM EST AGE/SEX: 87 years / Female INDICATIONS: Altered mental status. CLINICAL DATA: This is the patient's initial encounter. Patient reports that signs and symptoms have been present for 1 day and indicates a pain score of Nonresponsive. MEDICAL/SURGICAL HISTORY: Myocardial infarction. Colon resection. RADIATION DOSE: 56.35 CTDI (mGy) COMPARISON: [facility], CTA HEAD W CONTRAST W 3D, 02/01/2018. [facility], MR HEAD W/O CONTRAST, 02/01/2018. [facility], CT HEAD W/O CONTRAST, 02/01/2018. . TECHNIQUE: CT of the head without contrast. Using automated exposure control and adjustment of the mA and/or kV according to patient size, radiation dose was kept as low as reasonably achievable to ob tain optimal diagnostic quality images. DICOM format image data is available electronically for revi ew and comparison. FINDINGS: Cerebrum: The ventricles are normal for age. No evidence of midline shift, mass lesion, hemorrhage or acute infarction. No extraaxial fluid collections are seen. Posterior Fossa: The cerebellum and brainstem are intact. The 4th ventricle is midline. The cerebe llopontine angle is unremarkable. Extracranial: The visualized portion of the orbits is intact. Skull: The calvaria is intact. No evidence of skull fracture. CONCLUSION: No change. No acute intracranial abnormality demonstrated. . Electronically signed by: Steven Maza MD 02/01/2018 7:16 PM EST
--- NOTE | 2018-02-01 20:06 | MR ---
EXAM DATE: 02/01/2018 7:56 PM EST AGE/SEX: 87 years / Female INDICATIONS: CVA. CLINICAL DATA: This is the patient's initial encounter. Patient reports that signs and symptoms have been present for 1 day and indicates a pain score of 4/10. MEDICAL/SURGICAL HISTORY: Hypertension. Appendectomy. Hysterectomy. COMPARISON: No prior exams available for comparison. TECHNIQUE: Multiplanar, multisequence examination of the brain was performed without contrast. FINDINGS: Cerebrum: The ventricles are normal for age. No evidence of midline shift, mass lesion, hemorrhage or acute infarction. No extraaxial fluid collections are seen. The pituitary gland and suprasellar cistern are normal in configuration. White Matter: No significant signal abnormalities are seen in the white matter. Posterior Fossa: The cerebellum and brainstem are intact. The 4th ventricle is midline. The cerebel lopontine angle is unremarkable. The cerebellar tonsils are normal in position. Diffusion Imaging: No focal areas of restricted diffusion are seen. No evidence of acute infarction . Extracranial: The visualized portions of the orbits and paranasal sinuses are unremarkable. CONCLUSION: 1. No acute intracranial abnormality. Electronically signed by: Rd Simmons MD 02/01/2018 8:05 PM EST
--- NOTE | 2018-02-01 23:16 | P.PN ---
Subjective Interval history: [place] [facility] [place] [facility] [place]was admitted their for atypical chest pain,labs were unremarkable ,during stay there had loss of conscious and code was called and was seen by neurology ,patient initially had some weakness but this resolved when neuro was seeing patient . Patient has history of atrial fib and was started on heparin drip ,CT scans so far are negative mri pending ,possible TIA vs CVA. Physical Exam Vital signs: Vital Signs 02/01/18 03:03 02/01/18 03:11 02/01/18 06:43 Temperature 97.4 F L 97.4 F L Pulse Rate 68 76 75 Respiratory Rate 18 15 16 Blood Pressure 138/64 123/58 L 99/50 L Pulse Oximetry 99 97 02/01/18 07:37 02/01/18 11:33 02/01/18 12:03 Temperature 98.7 F 98.2 F Pulse Rate 75 73 70 Respiratory Rate 18 16 Blood Pressure 126/60 118/56 L 139/64 Pulse Oximetry 100 96 96 02/01/18 14:56 02/01/18 16:00 02/01/18 19:07 Temperature 98.9 F Pulse Rate 63 72 Respiratory Rate 16 Blood Pressure 113/57 L 126/59 L 98/54 L Pulse Oximetry 97 94 L Intake & Output 02/01/18 02/01/18 02/02/18 06:59 18:59 06:59 Weight 53.2 kg Other: Weight On Admission 53.2 kg Narrative: GENERAL: This is a well-nourished, well-developed patient, in no apparent distress. Patient speaks in clear complete sentences. Patient is pleasant. HEENT: Head is atraumatic and normocephalic. Neck is supple without lymphadenopathy and trachea is midline. No JVD or carotid bruits. CARDIOVASCULAR: Grade 2 systolic murmur left sternal border, grade 2 systolic murmur at right sternal border radiating towards the neck. Regular rate and rhythm without gallops or rubs. RESPIRATORY: Clear to auscultation. Breath sounds equal bilaterally. No wheezes , rales, or rhonchi. Chest wall is nontender. No use of accessory muscles. GASTROINTESTINAL: Abdomen is nontender, nondistended. Abdomen soft. No obvious pulsatile mass or bruit. No CVA tenderness. Strong femoral pulses bilaterally. Normal bowel sounds in all quadrants. MUSCULOSKELETAL: Patient is moving upper and lower extremities freely. No calf tenderness or edema, no Homans sign. Strong pulses in upper and lower extremities. NEUROLOGICAL: Patient is now alert and oriented. Cranial nerves 2-12 are grossly intact. No focal deficits and speech is clear. SKIN: No rash and turgor is normal. Results - Labs CBC & Chem 7: 02/01/18 12:18 02/01/18 04:00 Laboratory Results - last 24 hr 02/01/18 02/01/18 02/01/18 03:36 04:00 04:00 WBC 5.3 RBC 3.48 L Hgb 10.7 L POC Hgb (Calc) Hct 31.1 L POC Hct MCV 89.3 MCH 30.8 MCHC 34.5 RDW 14.7 Plt Count 181 MPV 9.1 Neut % (Auto) 60.8 Lymph % (Auto) 26.5 [place] % (Auto) 6.3 Eos % (Auto) 5.9 H Baso % (Auto) 0.5 Neut # (Auto) 3.2 Lymph # (Auto) 1.4 [place] # (Auto) 0.3 Eos # (Auto) 0.3 Baso # (Auto) 0.0 WBC Differential . Differential Comment Auto diff final PT INR APTT Fibrinogen D-Dimer Quant (PE/DVT) Puncture Site Patient Temperature O2 Saturation ABG pH ABG pCO2 ABG pO2 ABG HCO3 ABG O2 Content ABG Base Excess ABG Methemoglobin Arnoldo Test Hemoglobin Carboxyhemoglobin Inspired O2 Critical Value POC Sodium Sodium 139 POC Potassium Potassium 3.9 POC Chloride Chloride 105 Carbon Dioxide 28.7 Anion Gap 5 POC BUN BUN 33 H Creatinine 1.34 H POC Creatinine Estimated GFR 45 L POC Glucose 90 Random Glucose 94 Calcium 8.6 Magnesium Total Bilirubin 1.0 AST 15 ALT 15 Alkaline Phosphatase 71 Total Creatine Kinase CK-MB (CK-2) Troponin I Less than 0.02 L B-Natriuretic Peptide Total Protein 6.7 Albumin 3.4 Triglycerides Cholesterol LDL Cholesterol, Calc HDL Cholesterol Cholesterol/HDL Ratio Lipase 54 L Beta HCG, Quant Urine Color Urine Clarity Urine pH Ur Specific [place] Urine Protein Urine Glucose (UA) Urine Ketones Urine Occult Blood Urine Nitrate Urine Bilirubin Urine Urobilinogen Ur Leukocyte Esterase Urine RBC Urine WBC Ur Squamous Epith Cells Urine Mucus Micro UA Comment Ur Microscopic Review Urine Culture Comments Nasal Screen MRSA (PCR) Urine Opiates Screen Ur Barbiturates Screen Ur Amphetamines Screen U Benzodiazepines Scrn Urine Cocaine Screen U Cannabinoids Screen Blood Type Antibody Screen 02/01/18 02/01/18 02/01/18 04:00 04:00 04:00 WBC RBC Hgb POC Hgb (Calc) Hct POC Hct MCV MCH MCHC RDW Plt Count MPV Neut % (Auto) Lymph % (Auto) [place] % (Auto) Eos % (Auto) Baso % (Auto) Neut # (Auto) Lymph # (Auto) [place] # (Auto) Eos # (Auto) Baso # (Auto) WBC Differential Differential Comment PT 10.8 INR 1.1 APTT 23.9 Fibrinogen D-Dimer Quant (PE/DVT) 3.70 H Puncture Site Patient Temperature O2 Saturation ABG pH ABG pCO2 ABG pO2 ABG HCO3 ABG O2 Content ABG Base Excess ABG Methemoglobin Arnoldo Test Hemoglobin Carboxyhemoglobin Inspired O2 Critical Value POC Sodium Sodium POC Potassium Potassium POC Chloride Chloride Carbon Dioxide Anion Gap POC BUN BUN Creatinine POC Creatinine Estimated GFR POC Glucose Random Glucose Calcium Magnesium 2.4 Total Bilirubin AST ALT Alkaline Phosphatase Total Creatine Kinase 109 CK-MB (CK-2) 1.6 Troponin I B-Natriuretic Peptide 314 H Total Protein Albumin Triglycerides Cholesterol LDL Cholesterol, Calc HDL Cholesterol Cholesterol/HDL Ratio Lipase Beta HCG, Quant Urine Color Urine Clarity Urine pH Ur Specific [place] Urine Protein Urine Glucose (UA) Urine Ketones Urine Occult Blood Urine Nitrate Urine Bilirubin Urine Urobilinogen Ur Leukocyte Esterase Urine RBC Urine WBC Ur Squamous Epith Cells Urine Mucus Micro UA Comment Ur Microscopic Review Urine Culture Comments Nasal Screen MRSA (PCR) Urine Opiates Screen Ur Barbiturates Screen Ur Amphetamines Screen U Benzodiazepines Scrn Urine Cocaine Screen U Cannabinoids Screen Blood Type Antibody Screen 02/01/18 02/01/18 02/01/18 07:38 09:50 12:00 WBC RBC Hgb POC Hgb (Calc) Hct POC Hct MCV MCH MCHC RDW Plt Count MPV Neut % (Auto) Lymph % (Auto) [place] % (Auto) Eos % (Auto) Baso % (Auto) Neut # (Auto) Lymph # (Auto) [place] # (Auto) Eos # (Auto) Baso # (Auto) WBC Differential Differential Comment PT INR APTT Fibrinogen D-Dimer Quant (PE/DVT) Puncture Site Patient Temperature O2 Saturation ABG pH ABG pCO2 ABG pO2 ABG HCO3 ABG O2 Content ABG Base Excess ABG Methemoglobin Arnoldo Test Hemoglobin Carboxyhemoglobin Inspired O2 Critical Value POC Sodium Sodium POC Potassium Potassium POC Chloride Chloride Carbon Dioxide Anion Gap POC BUN BUN Creatinine POC Creatinine Estimated GFR POC Glucose 82 Random Glucose Calcium Magnesium Total Bilirubin AST ALT Alkaline Phosphatase Total Creatine Kinase 92 88 CK-MB (CK-2) Troponin I Less than 0.02 L Less than 0.02 L B-Natriuretic Peptide Total Protein Albumin Triglycerides Cholesterol LDL Cholesterol, Calc HDL Cholesterol Cholesterol/HDL Ratio Lipase Beta HCG, Quant Urine Color Urine Clarity Urine pH Ur Specific [place] Urine Protein Urine Glucose (UA) Urine Ketones Urine Occult Blood Urine Nitrate Urine Bilirubin Urine Urobilinogen Ur Leukocyte Esterase Urine RBC Urine WBC Ur Squamous Epith Cells Urine Mucus Micro UA Comment Ur Microscopic Review Urine Culture Comments Nasal Screen MRSA (PCR) Urine Opiates Screen Ur Barbiturates Screen Ur Amphetamines Screen U Benzodiazepines Scrn Urine Cocaine Screen U Cannabinoids Screen Blood Type Antibody Screen 02/01/18 02/01/18 02/01/18 12:00 12:18 12:18 WBC 5.7 RBC 3.49 L Hgb 10.8 L POC Hgb (Calc) Hct 31.5 L POC Hct MCV 90.2 MCH 31.0 MCHC 34.4 RDW 14.5 Plt Count 187 MPV 9.6 Neut % (Auto) 51.2 Lymph % (Auto) 35.7 [place] % (Auto) 6.3 Eos % (Auto) 6.1 H Baso % (Auto) 0.7 Neut # (Auto) 2.9 Lymph # (Auto) 2.0 [place] # (Auto) 0.4 Eos # (Auto) 0.3 Baso # (Auto) 0.0 WBC Differential . Differential Comment Auto diff final PT 10.7 INR 1.1 APTT 24.1 Fibrinogen 287 D-Dimer Quant (PE/DVT) Puncture Site Left radial Patient Temperature 98.6 O2 Saturation 93 ABG pH 7.42 ABG pCO2 43 H ABG pO2 73 ABG HCO3 27 H ABG O2 Content 13.1 ABG Base Excess 2.9 H ABG Methemoglobin 0.3 Arnoldo Test Present Hemoglobin 10.0 L Carboxyhemoglobin 1.4 Inspired O2 21 Critical Value No POC Sodium Sodium POC Potassium Potassium POC Chloride Chloride Carbon Dioxide Anion Gap POC BUN BUN Creatinine POC Creatinine Estimated GFR POC Glucose Random Glucose Calcium Magnesium Total Bilirubin AST ALT Alkaline Phosphatase Total Creatine Kinase CK-MB (CK-2) Troponin I B-Natriuretic Peptide Total Protein Albumin Triglycerides Cholesterol LDL Cholesterol, Calc HDL Cholesterol Cholesterol/HDL Ratio Lipase Beta HCG, Quant Urine Color Urine Clarity Urine pH Ur Specific [place] Urine Protein Urine Glucose (UA) Urine Ketones Urine Occult Blood Urine Nitrate Urine Bilirubin Urine Urobilinogen Ur Leukocyte Esterase Urine RBC Urine WBC Ur Squamous Epith Cells Urine Mucus Micro UA Comment Ur Microscopic Review Urine Culture Comments Nasal Screen MRSA (PCR) Urine Opiates Screen Ur Barbiturates Screen Ur Amphetamines Screen U Benzodiazepines Scrn Urine Cocaine Screen U Cannabinoids Screen Blood Type Antibody Screen 02/01/18 02/01/18 02/01/18 12:18 12:18 12:18 WBC RBC Hgb POC Hgb (Calc) 10.9 L Hct POC Hct 32.0 L MCV MCH MCHC RDW Plt Count MPV Neut % (Auto) Lymph % (Auto) [place] % (Auto) Eos % (Auto) Baso % (Auto) Neut # (Auto) Lymph # (Auto) [place] # (Auto) Eos # (Auto) Baso # (Auto) WBC Differential Differential Comment PT INR APTT Fibrinogen D-Dimer Quant (PE/DVT) Puncture Site Patient Temperature O2 Saturation ABG pH ABG pCO2 ABG pO2 ABG HCO3 ABG O2 Content ABG Base Excess ABG Methemoglobin Arnoldo Test Hemoglobin Carboxyhemoglobin Inspired O2 Critical Value POC Sodium 140 Sodium POC Potassium 4.3 Potassium POC Chloride 101 L Chloride Carbon Dioxide Anion Gap POC BUN 30 H BUN Creatinine POC Creatinine 1.0 Estimated GFR POC Glucose 80 Random Glucose Calcium Magnesium Total Bilirubin AST ALT Alkaline Phosphatase Total Creatine Kinase 93 CK-MB (CK-2) Troponin I Less than 0.02 L B-Natriuretic Peptide Total Protein Albumin Triglycerides 54 Cholesterol 107 L LDL Cholesterol, Calc 43 HDL Cholesterol 52.9 Cholesterol/HDL Ratio 2.02 Lipase Beta HCG, Quant 2 Urine Color Urine Clarity Urine pH Ur Specific [place] Urine Protein Urine Glucose (UA) Urine Ketones Urine Occult Blood Urine Nitrate Urine Bilirubin Urine Urobilinogen Ur Leukocyte Esterase Urine RBC Urine WBC Ur Squamous Epith Cells Urine Mucus Micro UA Comment Ur Microscopic Review Urine Culture Comments Nasal Screen MRSA (PCR) Urine Opiates Screen Ur Barbiturates Screen Ur Amphetamines Screen U Benzodiazepines Scrn Urine Cocaine Screen U Cannabinoids Screen Blood Type O Positive Antibody Screen Negative 02/01/18 02/01/18 02/01/18 16:46 16:46 18:56 WBC RBC Hgb POC Hgb (Calc) Hct POC Hct MCV MCH MCHC RDW Plt Count MPV Neut % (Auto) Lymph % (Auto) [place] % (Auto) Eos % (Auto) Baso % (Auto) Neut # (Auto) Lymph # (Auto) [place] # (Auto) Eos # (Auto) Baso # (Auto) WBC Differential Differential Comment PT INR APTT Fibrinogen D-Dimer Quant (PE/DVT) Puncture Site Patient Temperature O2 Saturation ABG pH ABG pCO2 ABG pO2 ABG HCO3 ABG O2 Content ABG Base Excess ABG Methemoglobin Arnoldo Test Hemoglobin Carboxyhemoglobin Inspired O2 Critical Value POC Sodium Sodium POC Potassium Potassium POC Chloride Chloride Carbon Dioxide Anion Gap POC BUN BUN Creatinine POC Creatinine Estimated GFR POC Glucose 85 Random Glucose Calcium Magnesium Total Bilirubin AST ALT Alkaline Phosphatase Total Creatine Kinase CK-MB (CK-2) Troponin I B-Natriuretic Peptide Total Protein Albumin Triglycerides Cholesterol LDL Cholesterol, Calc HDL Cholesterol Cholesterol/HDL Ratio Lipase Beta HCG, Quant Urine Color Yellow Urine Clarity Clear Urine pH 6.0 Ur Specific [place] 1.032 Urine Protein Negative Urine Glucose (UA) Negative Urine Ketones Negative Urine Occult Blood Negative Urine Nitrate Negative Urine Bilirubin Negative Urine Urobilinogen Less than 2 Ur Leukocyte Esterase Trace H Urine RBC 1 Urine WBC 1 Ur Squamous Epith Cells 2 Urine Mucus Few H Micro UA Comment Culture not ind Ur Microscopic Review Not Reportable Urine Culture Comments Culture not ind Nasal Screen MRSA (PCR) Urine Opiates Screen Neg Ur Barbiturates Screen Neg Ur Amphetamines Screen Neg U Benzodiazepines Scrn Neg Urine Cocaine Screen Neg U Cannabinoids Screen Neg Blood Type Antibody Screen 02/01/18 02/01/18 20:21 20:46 WBC RBC Hgb POC Hgb (Calc) Hct POC Hct MCV MCH MCHC RDW Plt Count MPV Neut % (Auto) Lymph % (Auto) [place] % (Auto) Eos % (Auto) Baso % (Auto) Neut # (Auto) Lymph # (Auto) [place] # (Auto) Eos # (Auto) Baso # (Auto) WBC Differential Differential Comment PT INR APTT 28.9 Fibrinogen D-Dimer Quant (PE/DVT) Puncture Site Patient Temperature O2 Saturation ABG pH ABG pCO2 ABG pO2 ABG HCO3 ABG O2 Content ABG Base Excess ABG Methemoglobin Arnoldo Test Hemoglobin Carboxyhemoglobin Inspired O2 Critical Value POC Sodium Sodium POC Potassium Potassium POC Chloride Chloride Carbon Dioxide Anion Gap POC BUN BUN Creatinine POC Creatinine Estimated GFR POC Glucose Random Glucose Calcium Magnesium Total Bilirubin AST ALT Alkaline Phosphatase Total Creatine Kinase CK-MB (CK-2) Troponin I B-Natriuretic Peptide Total Protein Albumin Triglycerides Cholesterol LDL Cholesterol, Calc HDL Cholesterol Cholesterol/HDL Ratio Lipase Beta HCG, Quant Urine Color Urine Clarity Urine pH Ur Specific [place] Urine Protein Urine Glucose (UA) Urine Ketones Urine Occult Blood Urine Nitrate Urine Bilirubin Urine Urobilinogen Ur Leukocyte Esterase Urine RBC Urine WBC Ur Squamous Epith Cells Urine Mucus Micro UA Comment Ur Microscopic Review Urine Culture Comments Nasal Screen MRSA (PCR) Not detected Urine Opiates Screen Ur Barbiturates Screen Ur Amphetamines Screen U Benzodiazepines Scrn Urine Cocaine Screen U Cannabinoids Screen Blood Type Antibody Screen - Imaging Impressions Head MRI 02/01/18 00:00 CONCLUSION: 1. No acute intracranial abnormality. Chest X-Ray 02/01/18 03:41 CONCLUSION: No acute cardiopulmonary disease. Head CT 02/01/18 03:42 CONCLUSION: 1. No acute intracranial abnormality. . Chest CTA 02/01/18 05:14 CONCLUSION: 1. No pulmonary emboli. 2. Cardiomegaly. 3. Left basilar atelectasis. Chest X-Ray 02/01/18 12:16 CONCLUSION: There is a parenchymal infiltrate in the left lower lung. Head CT 02/01/18 12:16 CONCLUSION: 1. No focal or acute intracranial hemorrhage. Report was called by [Dr. Javed to Dr. Leon at 12:30 PM ] Head CTA 02/01/18 12:16 CONCLUSION: 1. No evidence of acute occlusion. Report was called by [ Dr. Javed to Dr. Leon at 12:30 PM] Neck CTA 02/01/18 12:16 CONCLUSION: 1. There are some calcified plaquing at both carotid bifurcations. 2. No evidence of any focal or high-grade stenosis. 3. Both internal carotid arteries are patent throughout their extent. There is tortuosity of both internal carotid arteries. Head CT 02/01/18 18:56 CONCLUSION: No change. No acute intracranial abnormality demonstrated. . Assessment and Plan - Assessment (1) Loss of consciousness Code(s): R40.20 - Unspecified coma Status: Acute Plan: work up so far negative on heparin drip as has atrial fib (2) TIA (transient ischemic attack) Code(s): G45.9 - Transient cerebral ischemic attack, unspecified Status: Acute Plan: as symptoms resolved may have been TIA MRI planned. - Plan further plan as case develops Code Status: full Discussed Condition With: patient
[2018-02-02] MEDS: Gabapentin 300 MG Capsule PO SCH ×3 (08:09→17:30)
[2018-02-02] MEDS: Metoprolol Tartrate 25 MG Tablet PO SCH ×2 (08:10→21:44)
[2018-02-02] MEDS: Digoxin 125 MCG Tablet PO SCH (08:10)
[2018-02-02] MEDS: amLODIPine 5 MG Tablet PO SCH (08:10)
[2018-02-02] MEDS: Aspirin 325 MG Tablet PO SCH (08:11)
--- NOTE | 2018-02-02 15:52 | P.PNIM ---
Subjective Interval history: Pt is feeling much better other than complaints of pain in LLE No swelling She noted some chest pain today, pressure sensation across her chest. Ambulating to the bathroom per the pts nurse. Physical Exam Vital signs: Last Vital Signs Temp 98.2 F 02/02/18 12:00 Pulse 67 02/02/18 12:00 Resp 21 02/02/18 12:00 BP 116/59 L 02/02/18 12:00 Pulse Ox 98 02/02/18 12:00 Narrative: General: NAD, AAOx3 Chest: CTA Cardiac: Regular Abd: +BS, soft, ND/NT Ext: Pain with palpation of the LLE, no swelling Results Labs CBC & Chem 7: 02/01/18 12:18 02/01/18 04:00 Imaging Head MRI 02/01/18 00:00 CONCLUSION: 1. No acute intracranial abnormality. Chest X-Ray 02/01/18 03:41 CONCLUSION: No acute cardiopulmonary disease. Head CT 02/01/18 03:42 CONCLUSION: 1. No acute intracranial abnormality. . Chest CTA 02/01/18 05:14 CONCLUSION: 1. No pulmonary emboli. 2. Cardiomegaly. 3. Left basilar atelectasis. Chest X-Ray 02/01/18 12:16 CONCLUSION: There is a parenchymal infiltrate in the left lower lung. Head CT 02/01/18 12:16 CONCLUSION: 1. No focal or acute intracranial hemorrhage. Report was called by [Dr. Javed to Dr. Leon at 12:30 PM ] Head CTA 02/01/18 12:16 CONCLUSION: 1. No evidence of acute occlusion. Report was called by [ Dr. Javed to Dr. Leon at 12:30 PM] Neck CTA 02/01/18 12:16 CONCLUSION: 1. There are some calcified plaquing at both carotid bifurcations. 2. No evidence of any focal or high-grade stenosis. 3. Both internal carotid arteries are patent throughout their extent. There is tortuosity of both internal carotid arteries. Head CT 02/01/18 18:56 CONCLUSION: No change. No acute intracranial abnormality demonstrated. . Assessment and Plan Assessment (1) Loss of consciousness: Code(s): R40.20 - Unspecified coma Status: Acute (2) TIA (transient ischemic attack): Code(s): G45.9 - Transient cerebral ischemic attack, unspecified Status: Acute Plan TIA Paroxysmal A. fib - Pt is an 87 y/o female with paroxysmal atrial fibrillation, CHF, COPD, and HTN who presented to the ED on 02/01/18 with chest discomfort. Pt was admitted to the [facility] for further workup. While in the [facility] she had sudden onset of loss of consciousness. Accu-Chek was 82. Blood pressure was stable. She was noted to be in sinus rhythm. Stroke alert was called. Respiratory therapist was checking ABG when the patient opened her eyes on the second puncture and she was able to move all extremities and follow commands. 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 - Pt was started on a Heparin gtt - Neurology following. - Chest X-Ray 02/01/18 12:16 --> There is a parenchymal infiltrate in the left lower lung. - Head CT 02/01/18 12:16 --> No focal or acute intracranial hemorrhage. - Head CTA 02/01/18 12:16 --> No evidence of acute occlusion. - Neck CTA 02/01/18 12:16 --> 1. There are some calcified plaquing at both carotid bifurcations. 2. No evidence of any focal or high-grade stenosis. 3. Both internal carotid arteries are patent throughout their extent. There is tortuosity of both internal carotid arteries. - Repeat Head CT 02/01/18 18:56 --> No change. No acute intracranial abnormality demonstrated. - Head MRI 02/01/18 00:00 --> No acute intracranial abnormality. - Lipid panel --> Total cholesterol 107, HDL 52, LDL 43 - Stop Heparin - Cont. ASA - Cont. Dig 125mcg daily, Metoprolol 75mg BID - PT evaluation - Pt complains of some pain in the LLE, check doppler US - Supportive care - Transfer out of ICU Chest pain - Pt was admitted with chest pain - Serial CE were negative - CTA Chest (02/01/18) was negative for PE, noted cardiomegaly and left basilar atelectasis. - 2D echo (02/02/18): - The left ventricular systolic function is hyperdynamic with an estimated ejection fraction in the range of 65-70%. - Moderate concentric left ventricular hypertrophy. - Doppler parameters are consistent with impaired left ventricular relaxtion (grade 1 diastolic dysfunction). - Jmvwd-uo-qwai mitral valve regurgitation. - Trace aortic valve regurgitation. - There is moderate to severe tricuspid valve regurgitation. - There is estimated gnnajspu-fb-tkbgrw pulmonary hypertension present (60 mmHg). - Pt still with some chest pain today - Check Lexiscan in AM Chronic back pain - Pt was on Fentanyl patch 25mcg prior to admission. - This was removed when pt became unresponsive on 02/01 - She has [place] 7.5/325 TID PRN ordered Attending Attestation The exam, history, and the medical decision-making described in the above note were completed with the assistance of the mid-level provider. I reviewed and agree with the findings presented. I attest that I had a jvnf-uo-vqbw encounter with the patient on the same day, and personally performed and documented my assessment and findings in the medical record. Patient examined. Assessment and plan formulated with Mary Grant PA-C. I agree with the above. Pt interviewed and examined. Daughter at bedside. Pt eating dinner without complaints. No neurologic episodes today. c/o vague chest pain. Pt ambulating to BR. -obtain lexiscan in AM - observe overnight - possible TIA - if lexiscan negative & no new events, then likely d/c to home 02/03 - ASA Progress Note: Quality VTE Deep Vein Thrombosis/Pulmonary Embolism Present on Admission: No
--- NOTE | 2018-02-02 16:47 | ECHRPT ---
Indication: CVA/TIA CONCLUSIONS The left ventricular systolic function is hyperdynamic with an estimated ejection fraction in the ra nge of 65- 70%. Moderate concentric left ventricular hypertrophy. Doppler parameters are consistent with impaired left ventricular relaxtion (grade 1 diastolic dysfun ction). Uqchk-wx-dqhy mitral valve regurgitation. Trace aortic valve regurgitation. There is moderate to severe tricuspid valve regurgitation. There is estimated crpjunah-vr-fiylil pulmonary hypertension present (60 mmHg). BP: / HR: Rhythm: Technical Quality: FINDINGS LEFT VENTRICLE Normal left ventricular size. Moderate concentric left ventricular hypertrophy. The left ventricular systolic function is hyperdynamic with an estimated ejection fraction in the ra nge of 65- 70%. Doppler parameters are consistent with impaired left ventricular relaxtion (grade 1 diastolic dysfun ction). RIGHT VENTRICLE Normal right ventricular size and systolic function. LEFT ATRIUM The left atrial size is ennjobic-he-mhqddjhv dilated. RIGHT ATRIUM The right atrial size is mildly dilated. ATRIAL SEPTUM Normal atrial septal thickness without atrial level shunting by limited color doppler interrogation. AORTA The aortic root and proximal ascending aorta are normal in size on limited imaging. MITRAL VALVE Moderate mitral annular calcification. Samkz-ag-gidk mitral valve regurgitation. No mitral valve stenosis. AORTIC VALVE Aortic valve sclerosis is present. Trace aortic valve regurgitation. No aortic valve stenosis. TRICUSPID VALVE Grossly normal There is moderate to severe tricuspid valve regurgitation. There is estimated hiizblbj-bc-tochbb pulmonary hypertension present (60 mmHg). PULMONARY VALVE The pulmonary valve is not well visualized. VESSELS The inferior vena cava is normal in size. PERICARDIUM There is a trace pericardial effusion present. Oscar Dillard DO (Electronically Signed) Final Date:02 February 2018 16:46
--- NOTE | 2018-02-02 19:22 | P.PNNEU ---
Subjective Subjective Comments: no new neurologic sx. Had another episode of decrease LOC yesterday . Repeat CT brain normal Active Medications: Active Medications Hydrocodone Bitart/Acetaminophen ([place] 7.5/325) 1 tab PO TID PRN PRN Reason: Pain 6-10 Last Admin: 02/02/18 11:31 Dose: 1 tab Amlodipine Besylate (Norvasc) 5 mg PO DAILY [facility] Last Admin: 02/02/18 08:10 Dose: 5 mg Aspirin (Aspirin) 325 mg PO DAILY [facility] Last Admin: 02/02/18 08:11 Dose: 325 mg Digoxin (Lanoxin) 125 mcg PO DAILY [facility] Last Admin: 02/02/18 08:10 Dose: 125 mcg Gabapentin (Neurontin) 600 mg PO TID [facility] Last Admin: 02/02/18 17:30 Dose: 600 mg Metoprolol Tartrate (Lopressor) 75 mg PO BID [facility] Last Admin: 02/02/18 08:10 Dose: 75 mg Sodium Chloride (Ns Flush) 2 ml IV.FLUSH UNSCH PRN PRN Reason: FLUSH AFTER USING IV ACCESS Sodium Chloride (Ns Flush) 2 ml IV.FLUSH BID [facility] Last Admin: 02/02/18 08:11 Dose: 2 ml Sodium Chloride (Ns Flush) 2 ml IV.FLUSH PRN PRN PRN Reason: FLUSH AFTER USING IV ACCESS Allergies/Adverse Reactions: Allergies Allergy/AdvReac Type Severity Reaction Status Date / Time meloxicam Allergy Severe Anaphylaxis Verified 02/01/18 03:01 morphine Allergy Severe Anaphylaxis Verified 02/01/18 03:01 Physical Exam Vital signs: Vital Signs 02/01/18 20:06 02/01/18 20:15 02/01/18 20:30 Temperature 99.1 F Pulse Rate 68 66 65 Respiratory Rate 20 24 24 Blood Pressure 127/64 177/79 H 143/64 H Pulse Oximetry 99 100 02/01/18 20:45 02/01/18 21:00 02/01/18 21:30 Temperature Pulse Rate 68 68 69 Respiratory Rate 26 H 36 H 20 Blood Pressure 128/56 L 120/60 119/57 L Pulse Oximetry 95 98 02/01/18 21:45 02/01/18 22:00 02/01/18 22:15 Temperature Pulse Rate 68 72 69 Respiratory Rate 18 38 H 18 Blood Pressure 113/56 L 111/56 L 107/56 L Pulse Oximetry 97 97 02/01/18 22:30 02/01/18 22:45 02/01/18 23:00 Temperature Pulse Rate 68 68 67 Respiratory Rate 17 18 16 Blood Pressure 108/55 L 109/54 L 128/59 L Pulse Oximetry 98 97 95 02/01/18 23:15 02/01/18 23:30 02/01/18 23:45 Temperature Pulse Rate 68 66 69 Respiratory Rate 17 22 38 H Blood Pressure 122/58 L 126/60 134/66 Pulse Oximetry 95 96 98 02/02/18 00:00 02/02/18 01:00 02/02/18 02:00 Temperature 98.4 F Pulse Rate 67 68 71 Respiratory Rate 18 18 20 Blood Pressure 134/66 122/59 L 143/67 H Pulse Oximetry 96 96 98 02/02/18 03:00 02/02/18 04:00 02/02/18 04:03 Temperature 98.4 F Pulse Rate 69 70 69 Respiratory Rate 20 20 19 Blood Pressure 135/62 137/65 137/65 Pulse Oximetry 97 96 96 02/02/18 05:00 02/02/18 06:00 02/02/18 07:00 Temperature Pulse Rate 70 72 70 Respiratory Rate 21 18 20 Blood Pressure 134/62 160/74 H 145/67 H Pulse Oximetry 96 96 97 02/02/18 08:00 02/02/18 09:00 02/02/18 10:00 Temperature 98.4 F Pulse Rate 72 62 64 Respiratory Rate 21 20 22 Blood Pressure 119/62 132/62 107/51 L Pulse Oximetry 96 100 02/02/18 11:00 02/02/18 12:00 02/02/18 13:00 Temperature 98.2 F Pulse Rate 62 67 64 Respiratory Rate 19 21 34 H Blood Pressure 120/57 L 116/59 L Pulse Oximetry 96 98 99 02/02/18 14:00 02/02/18 14:01 02/02/18 14:52 Temperature Pulse Rate 66 68 64 Respiratory Rate 26 H 27 H 21 Blood Pressure 91/52 L 86/50 L Pulse Oximetry 02/02/18 14:54 02/02/18 15:00 02/02/18 15:07 Temperature Pulse Rate 65 67 67 Respiratory Rate 33 H 27 H 27 H Blood Pressure 113/59 L 126/58 L 120/59 L Pulse Oximetry 98 99 98 02/02/18 16:00 02/02/18 16:07 Temperature 98 F Pulse Rate 68 65 Respiratory Rate 30 H 26 H Blood Pressure 122/56 L Pulse Oximetry 99 98 Intake & Output 02/02/18 02/02/18 02/03/18 06:59 18:59 06:59 Intake Total 200 / 200 500 / 500 Output Total 1250 / 1250 Balance -1050 / -1050 500 / 500 Weight 50.7 kg Intake: Oral 200 / 200 500 / 500 Output: Urine 1250 / 1250 Other: # Voids 2 - Routine Neurological Exam alert, follow commands CN intact MOTOR 5/5 BUE Objective Laboratory Results - last 24 hr 02/01/18 02/01/18 02/02/18 20:21 20:46 03:43 APTT 28.9 29.2 Nasal Screen MRSA (PCR) Not detected 02/02/18 12:40 APTT 35.5 H D Nasal Screen MRSA (PCR) Review/Management - Review/Management Plan: episodes of LOC. ? etiology. No definite sign of stroke or tia.
--- NOTE | 2018-02-02 21:20 | US ---
EXAM DATE: 02/02/2018 9:17 PM EST AGE/SEX: 87 years / Female INDICATIONS: Left leg pain. CLINICAL DATA: This is the patient's initial encounter. Patient reports that signs and symptoms have been present for 1 day and indicates a pain score of 2/10. MEDICAL/SURGICAL HISTORY: Gastroesophageal reflux disease. Hypertension. Hyperthyroidism. At rial fibrillation. Cardiac arrest. Esophageal stricture. Appendectomy. Partial colectomy. Repair to left rotator cuff. Right knee surgery. Hip replacement. COMPARISON: No prior exams available for comparison. TECHNIQUE: Venous ultrasound of both lower extremities was performed from the inguinal ligament to t he proximal calf. Real-time, color Doppler and spectral tracing, compression and augmentation techni ques were used. FINDINGS: Normal compression of the deep venous system from the inguinal region to the proximal calf . No echogenic clot is seen. Normal response of the venous system to augmentation and respiration. CONCLUSION: 1. No sonographic evidence for left lower extremity DVT. Electronically signed by: Pedro Mcrae MD 02/02/2018 9:19 PM EST
[2018-02-03] MEDS: Aspirin 325 MG Tablet PO SCH (08:00)
[2018-02-03] MEDS: Metoprolol Tartrate 25 MG Tablet PO SCH ×2 (08:00→21:00)
[2018-02-03] MEDS: Gabapentin 300 MG Capsule PO SCH ×3 (08:01→17:51)
[2018-02-03] MEDS: Digoxin 125 MCG Tablet PO SCH (08:01)
[2018-02-03] MEDS: amLODIPine 5 MG Tablet PO SCH (08:01)
[2018-02-03] MEDS ORDERED: Regadenoson Inj 0.4 MG/5 ML Syringe IV.PUSH ONE (10:52)
--- NOTE | 2018-02-03 12:10 | NM ---
EXAM DATE: 02/03/2018 12:01 PM EST AGE/SEX: 87 years / Female INDICATIONS:Chest pain on Digoxin. Atrial fibrillation Substernal chest pain. CLINICAL DATA: This is the patient's initial encounter. Patient reports that signs and symptoms have been present for 1 day and indicates a pain score of 5/10. MEDICAL/SURGICAL HISTORY: Hypertension. Gastroesophageal reflux disease. Appendectomy. Colecto my, left rotator cuff, right knee and right hip replacement. COMPARISON: [facility], MYOCARDIAL PERF PHARM SPECT, 03/21/2011. . DOSE: 8.6 mCi Tc 99m Myoview at rest 25.4 mCi [id number] at stress 0.4 mg Lexiscan STRESS SYMPTOMS: Dyspnea. EJECTION FRACTION: 65 % TECHNIQUE: The patient underwent pharmacologic stress with infusion of prescribed dose. Continuous ECG tracing was monitored during stress. Gated SPECT imaging was performed after stress and conventi onal SPECT imaging was performed at rest. The examination was performed on a SPECT/CT scanner, both attenuation and non-corrected datasets were reviewed. FINDINGS: Distribution: The maximum perfused segment at stress is in the inferolateral wall. Perfusion Study: The pattern of perfusion at stress is within normal limits. No fixed or reversib le perfusion defect is identified. Gated Study: There are intact wall motion and wall thickening without hypokinetic or dyskinetic segm ents. The ejection fraction is calculated at 65%. RISK CATEGORY: Low (<1% Annual Motality Rate) CONCLUSION: 1. Left ventricle perfusion is within normal limits without fixed or reversible perfusion defect tyron ntified. 2. Normal left ventricle wall motion and ejection fraction. Electronically signed by: Steven Gilliland MD 02/03/2018 12:09 PM EST
--- NOTE | 2018-02-03 12:32 | P.DS ---
DS: Providers Date of admission: 02/01/18 20:30 Primary care physician: UNKNOWN Consults: 02/01/18 12:16 Consult to Neurology Stat Consulting Provider: Roldan Leon For STAT consult, spoke directly to:: Edward Reason for Consultation: Brain Attack Notified:: Service Spoke with:: MEGAN Date Notified:: 02/01/18 Time Notified:: 12:23 Ordering Provider: TA Brief History from admission: This is an 87-year-old this azfr-epbh-vpd female patient in the presents to ED with past history of paroxysmal atrial fibrillation, atrial tachycardia, congestive heart failure with left ventricular hypertrophy, COPD, hypertension, hypothyroidism, chronic back pain that presents to ED to be evaluated for chest discomfort patient states that family woke her up to move her from a chair to her bedroom and when doing so she developed a chest pain with discomfort in her left arm as well. She really cannot recall how long it lasted. Cannot recall she is short of breath, nauseous, diaphoretic. For now she does not have any 3 of CAD, cannot recall last stress testing. Upon review of records she had a nonischemic Lexiscan here in 2011. She follows Dr. Ck Morales of cardiology however she does not recall seeing him recently. Feeling okay at this time. History of paroxysmal atrial fibrillation, atrial tachycardia, CHF, LVH, COPD, hypertension, hypothyroidism, and chronic back pain. Denies diabetes, CAD, and hyperlipidemia. She smoked about 1/2 pack of cigarettes a day for 10 years but has not smoked since the 1960s. DS: Diagnosis Discharge Diagnosis (1) Loss of consciousness: Status: Acute (2) TIA (transient ischemic attack): Status: Acute (3) Chest pain: Status: Acute DS: Summary TIA Paroxysmal AEusebio belcher - Pt is an 87 y/o female with paroxysmal atrial fibrillation, CHF, COPD, and HTN who presented to the ED on 02/01/18 with chest discomfort. Pt was admitted to the [facility] for further workup. While in the [facility] she had sudden onset of loss of consciousness. Accu-Chek was 82. Blood pressure was stable. She was noted to be in sinus rhythm. Stroke alert was called. Respiratory therapist was checking ABG when the patient opened her eyes on the second puncture and she was able to move all extremities and follow commands. 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 - Pt was started on a Heparin gtt - Neurology following. - Chest X-Ray 02/01/18 12:16 --> There is a parenchymal infiltrate in the left lower lung. - Head CT 02/01/18 12:16 --> No focal or acute intracranial hemorrhage. - Head CTA 02/01/18 12:16 --> No evidence of acute occlusion. - Neck CTA 02/01/18 12:16 --> 1. There are some calcified plaquing at both carotid bifurcations. 2. No evidence of any focal or high-grade stenosis. 3. Both internal carotid arteries are patent throughout their extent. There is tortuosity of both internal carotid arteries. - Repeat Head CT 02/01/18 18:56 --> No change. No acute intracranial abnormality demonstrated. - Head MRI 02/01/18 00:00 --> No acute intracranial abnormality. - Lipid panel --> Total cholesterol 107, HDL 52, LDL 43 - Stop Heparin - Cont. ASA - Cont. Dig 125mcg daily, Metoprolol 75mg BID - PT evaluation - Pt complains of some pain in the LLE, check doppler US - Supportive care Chest pain - Pt was admitted with chest pain - Serial CE were negative - CTA Chest (02/01/18) was negative for PE, noted cardiomegaly and left basilar atelectasis. - 2D echo (02/02/18): - The left ventricular systolic function is hyperdynamic with an estimated ejection fraction in the range of 65-70%. - Moderate concentric left ventricular hypertrophy. - Doppler parameters are consistent with impaired left ventricular relaxtion (grade 1 diastolic dysfunction). - Xnkrt-yx-lsjn mitral valve regurgitation. - Trace aortic valve regurgitation. - There is moderate to severe tricuspid valve regurgitation. - There is estimated sjlxjhmf-md-ekwdxu pulmonary hypertension present (60 mmHg). - Pt still with some chest pain today - Lexiscan 02/03: CONCLUSION: 1. Left ventricle perfusion is within normal limits without fixed or reversible perfusion defect identified.2. Normal left ventricle wall motion and ejection fraction. Chronic back pain - Pt was on Fentanyl patch 25mcg prior to admission. - This was removed when pt became unresponsive on 02/01 - She has [place] 7.5/325 TID PRN ordered Time Spent with Patient Total time spent providing and/or coordinating discharge services: Quality: Stroke Last date observed well: 02/01/18 Last time observed well: 11:33 Quality: VTE Deep Vein Thrombosis/Pulmonary Embolism Present on Admission: No Exam Narrative Exam Narrative: General: NAD, AAOx3 Chest: CTA Cardiac: Regular Abd: +BS, soft, ND/NT Ext: Pain with palpation of the LLE, no swelling Results Labs on day of discharge: Labs from last 24 hours 02/02/18 12:40 APTT 35.5 H D Impressions ITS Impressions Head MRI 02/01/18 00:00 CONCLUSION: 1. No acute intracranial abnormality. Chest CTA 02/01/18 05:14 CONCLUSION: 1. No pulmonary emboli. 2. Cardiomegaly. 3. Left basilar atelectasis. Chest X-Ray 02/01/18 12:16 CONCLUSION: There is a parenchymal infiltrate in the left lower lung. Head CTA 02/01/18 12:16 CONCLUSION: 1. No evidence of acute occlusion. Report was called by [ Dr. Javed to Dr. Leon at 12:30 PM] Neck CTA 02/01/18 12:16 CONCLUSION: 1. There are some calcified plaquing at both carotid bifurcations. 2. No evidence of any focal or high-grade stenosis. 3. Both internal carotid arteries are patent throughout their extent. There is tortuosity of both internal carotid arteries. Head CT 02/01/18 18:56 CONCLUSION: No change. No acute intracranial abnormality demonstrated. . Venous Doppler Study 02/02/18 00:00 CONCLUSION: 1. No sonographic evidence for left lower extremity DVT. Myocardial Perfusion Scan Nuc Med 02/03/18 00:00 CONCLUSION: 1. Left ventricle perfusion is within normal limits without fixed or reversible perfusion defect identified. 2. Normal left ventricle wall motion and ejection fraction. Discharge Plan Discharge Disposition Patient Disposition: Discharge Home Discharge Condition Condition: Stable Discharge Order Discharge Orders: Discharge Order (Routine); Ordered 02/03/18 Ordered By: Cortney Euceda Discharge Details Anticipated Discharge Date: 02/04/18 Physicians Team ED Provider: Michaela Rodriguez Primary Care Provider: UNKNOWN, Attending Provider: Abelino Muse Other Providers: Roldan Leon Rxs /Orders / Referrals /Forms Prescriptions: New aspirin 81 mg tablet,delayed release (DR/EC) 81 mg PO DAILY Qty: 30 RF: 0 pantoprazole [Protonix] 40 mg tablet,delayed release (DR/EC) 40 mg PO DAILY Qty: 30 RF: 0 Continue gabapentin 600 mg Tablet 600 mg PO TID RF: 0 amlodipine 5 mg Tablet 5 mg PO DAILY RF: 0 hydrocodone-acetaminophen 7.5-325 mg Tablet 1 tab PO TID PRN (Reason: Pain) RF: 0 zolpidem 10 mg Tablet 1 tab PO HS RF: 0 metoprolol tartrate 75 mg Tablet 75 mg PO BID RF: 0 digoxin [Lanoxin] 125 mcg Tablet 0.125 mg PO DAILY RF: 0 Discontinued diclofenac sodium 75 mg Tablet,Delayed Release (Dr/Ec) 75 mg PO BID RF: 0 lisinopril 10 mg Tablet 10 mg PO DAILY RF: 0 fentanyl 25 mcg/hr Patch 72 Hour 1 patch TRANSDERMAL Q72H RF: 0 Referrals: UNKNOWN, [Primary Care Provider] - See Instructions Risa Morocho MD [INFECTIOUS DISEASE] - See Instructions (follow up in 1 week) Status ED Status: Left Department
[2018-02-04 08:05] VITALS: O2SAT 98
[2018-02-04 08:07] VITALS: BP 124/87; PULSE 67; RESP 19; TEMP 98.7
[2018-02-04] MEDS: Gabapentin 300 MG Capsule PO SCH (08:15)
[2018-02-04] MEDS: amLODIPine 5 MG Tablet PO SCH (08:15)
[2018-02-04] MEDS: Digoxin 125 MCG Tablet PO SCH (08:15)
[2018-02-04] MEDS: Aspirin 325 MG Tablet PO SCH (08:15)
[2018-02-04] MEDS: Metoprolol Tartrate 25 MG Tablet PO SCH (08:15)
== END 2018-02-04 09:25 | disposition home or self-care (01) ==
LOC: NEPC 02:55 → NEDA 02:55 → NEPFCDU 09:17 → N03 20:01
PROVIDERS: ADMIT Hospitalist; ATTEND Hospitalist
DX: J44.9 Chronic obstructive pulmonary disease, unspecified; E03.9 Hypothyroidism, unspecified; Z90.49 Acquired absence of other specified parts of digestive tract; I48.0 Paroxysmal atrial fibrillation; K21.9 Gastro-esophageal reflux disease without esophagitis; Z87.891 Personal history of nicotine dependence; R55 Syncope and collapse; I27.20 Pulmonary hypertension, unspecified; I11.0 Hypertensive heart disease with heart failure; G89.29 Other chronic pain; M54.9 Dorsalgia, unspecified; Z88.5 Allergy status to narcotic agent; Z96.641 Presence of right artificial hip joint; I50.9 Heart failure, unspecified; I07.1 Rheumatic tricuspid insufficiency; M19.90 Unspecified osteoarthritis, unspecified site; R53.1 Weakness; G45.9 Transient cerebral ischemic attack, unspecified; R07.9 Chest pain, unspecified; J98.11 Atelectasis